=== PATIENT | female | born 1945 | race Caucasian/White ===

== ENCOUNTER 2019-05-24 06:00 | Outpatient (RCR) | payer MEDICARE, OTHER, SELFPAY | END 2019-06-11 23:59 | disposition home or self-care (01) | LOC: GPT 06:00 | PROVIDERS: Family Provider Nurse Practitioner; PCP Nurse Practitioner; Referring Provider Orthopaedic Surgery; Visit Provider Orthopaedic Surgery | DX: G90.521 Complex regional pain syndrome I of right lower limb (principal); M25.571 Pain in right ankle and joints of right foot; M25.671 Stiffness of right ankle, not elsewhere classified; G89.4 Chronic pain syndrome; R26.2 Difficulty in walking, not elsewhere classified | CPT/HCPCS: 97032; 97110; 97162; 97530 ==

== ENCOUNTER 2019-06-12 06:00 | Outpatient (RCR) | payer MEDICARE, OTHER, SELFPAY | END 2019-07-12 23:59 | disposition home or self-care (01) | LOC: GPT 06:00 | PROVIDERS: Family Provider Nurse Practitioner; PCP Nurse Practitioner; Referring Provider Orthopaedic Surgery; Visit Provider Orthopaedic Surgery | DX: S93.401D Sprain of unspecified ligament of right ankle, subsequent encounter (principal); X58.XXXD Exposure to other specified factors, subsequent encounter | CPT/HCPCS: 97032; 97110; 97112; 97116; 97164; 97530; 97760 ==

== ENCOUNTER 2019-07-13 06:00 | Outpatient (RCR) | payer MEDICARE, OTHER, SELFPAY | END 2019-08-11 23:59 | disposition home or self-care (01) | LOC: GPT 06:00 | PROVIDERS: Family Provider Nurse Practitioner; PCP Nurse Practitioner; Referring Provider Orthopaedic Surgery; Visit Provider Orthopaedic Surgery | DX: S93.401D Sprain of unspecified ligament of right ankle, subsequent encounter (principal); X58.XXXD Exposure to other specified factors, subsequent encounter | CPT/HCPCS: 97032; 97110; 97112; 97116; 97164; 97530; 97760 ==

== ENCOUNTER → 2019-08-09 10:42 | Outpatient (BNVA) | payer MEDICARE, OTHER, SELFPAY | PROVIDERS: Family Provider Nurse Practitioner; PCP Internal Medicine; Referring Provider Orthopaedic Surgery; Visit Provider Anesthesiology Pain Medicine | DX: G56.40 Causalgia of unspecified upper limb (principal); M25.571 Pain in right ankle and joints of right foot; Z79.891 Long term (current) use of opiate analgesic | CPT/HCPCS: 99203; 99204 ==

== ENCOUNTER 2019-08-12 06:00 | Outpatient (RCR) | payer MEDICARE, OTHER, SELFPAY | END 2019-09-11 23:59 | disposition home or self-care (01) | LOC: GPT 06:00 | PROVIDERS: Family Provider Nurse Practitioner; PCP Internal Medicine; Referring Provider Orthopaedic Surgery; Visit Provider Orthopaedic Surgery | DX: M25.571 Pain in right ankle and joints of right foot (principal); M25.671 Stiffness of right ankle, not elsewhere classified; G89.4 Chronic pain syndrome; R26.2 Difficulty in walking, not elsewhere classified | CPT/HCPCS: 97110; 97112; 97116; 97530 ==

== ENCOUNTER 2019-09-12 06:00 | Outpatient (RCR) | payer MEDICARE, OTHER, SELFPAY | END 2019-10-11 23:59 | disposition home or self-care (01) | LOC: GPT 06:00 | PROVIDERS: PCP Internal Medicine; Visit Provider Orthopaedic Surgery | DX: S93.401D Sprain of unspecified ligament of right ankle, subsequent encounter (principal); X58.XXXD Exposure to other specified factors, subsequent encounter | CPT/HCPCS: 97110; 97112; 97116; 97164; 97530 ==

== ENCOUNTER 2019-10-12 06:00 | Outpatient (RCR) | payer MEDICARE, OTHER, SELFPAY | END 2019-11-11 23:59 | disposition home or self-care (01) | LOC: GPT 06:00 | PROVIDERS: PCP Internal Medicine; Visit Provider Orthopaedic Surgery | DX: S93.401D Sprain of unspecified ligament of right ankle, subsequent encounter (principal); X58.XXXD Exposure to other specified factors, subsequent encounter | CPT/HCPCS: 97110; 97112; 97116; 97530 ==

== ENCOUNTER 2019-12-09 17:40 | Inpatient (IN) | payer MEDICARE, OTHER, SELFPAY ==
[2019-12-09 17:44] VITALS: BP 136/65; PULSE 87; RESP 24; TEMP 36.8; O2SAT 88; BMI 22.1
[2019-12-09 18:04] VITALS: BP 127/68; PULSE 83; RESP 24; O2SAT 95
--- NOTE | 2019-12-09 18:07 | ED_ITS ---
Documented by User: Calin Jefferson DO 12/12/19 06:18 HPI - SOB/Dyspnea General: Chief Complaint: Shortness of Breath/Dyspnea Stated Complaint: GENERALIZED WEAKNESS Time Seen by Provider: 12/09/19 17:49 History of Present Illness: HPI Narrative: 74-year-old female comes in complaining of generalized weakness last 3 days just feels disoriented and weak no specific symptoms. She has had a nonproductive cough with shortness of breath with exertion. She has albuterol nebs at home which have been relieving her symptoms. On arrival here her room air sat was 88% with 2 L by nasal cannula she improved to the mid 90s. She denies a productive cough denies any vomiting or diarrhea no abdominal pain. MD elicited complaint: cough Pertinent past history: COPD and other (Flex regional pain syndrome) Onset (ago): day(s) Timing: constant Severity: moderate Exacerbating factors: exertion Relieving factors: oxygen and rest Associated symptoms: Reports cough, myalgias and nausea; Deny fever(s), syncope or vomiting Treatment prior to arrival: oxygen Review of Systems Const: Denies: fever(s), chills, body aches, change in appetite, fatigue or malaise ENMT: Denies: throat pain, ear or mastoid pain, nasal discharge or nasal congestion Card: Denies: syncope Resp: Denies: dyspnea, productive cough or non-productive cough GI: Reports: nausea; Denies: vomiting : Denies: flank pain, difficulty voiding, dysuria, urinary frequency or urinary urgency Skin/Breast: Denies: rash or pruritus PFSH ED PFSH: Medical History COPD (chronic obstructive pulmonary disease) Former smoker Tinnitus Ulcerative colitis Surgical History Hx of hernia repair Hx of tonsillectomy Hx of tonsillectomy Hx of tubal ligation Family History Other Diabetes Hypertension Social History Smoking and tobacco status: former smoker Alcohol intake: never Substance/Drug Use: never Lives independently: Yes Household members: spouse Housing: House Physical Exam Const: COMMON NORMALS: no acute distress GENERAL APPEARANCE: cooperative and comfortable ORIENTATION/CONSCIOUSNESS: Yes awake, Yes oriented to person, Yes oriented to place and Yes oriented to time HENMT: COMMON NORMALS: normocephalic, atraumatic and hearing grossly normal bilaterally HEAD & SCALP: normocephalic and atraumatic Eye: COMMON NORMALS: Equal, round and reactive pupils present, EOMs intact bilaterally, conjunctivae normal and no scleral icterus CONJUNCTIVA: Yes conjunctivae normal PUPIL: Yes Equal, round and reactive pupils present Neck/C-Spine: COMMON NORMALS: no JVD Resp: COMMON NORMALS: normal respiratory effort, No retractions, No use of accessory muscles and clear to auscultation bilaterally AUSCULTATION: clear to auscultation bilaterally Cardio: COMMON NORMALS: no JVD, regular rate, regular rhythm and No murmurs present (Cardio) RATE: regular rate RHYTHM: regular rhythm GI: COMMON NORMALS: Soft to palpation and No hepatosplenomegaly present AUSCULTATION: Yes normoactive bowel sounds PALPATION: Yes Soft to palpation, No Tenderness to palpation present (GI), No Guarding due to palpation present (GI) and Yes No hepatosplenomegaly present Extremity: COMMON NORMALS: normal to inspection, capillary refill normal, no clubbing, cyanosis or edema, no calf tenderness and no pedal edema Neuro: SENSORIUM/ORIENTATION: Yes oriented to person, Yes oriented to place and Yes oriented to time Skin: COMMON NORMALS: no rashes or lesions noted GENERAL SKIN EXAM: no rashes or lesions noted Course Vital Signs: Vital signs: Vital Signs Temperature 97.8 F 12/11/19 15:15 Pulse Rate 71 12/11/19 15:15 Respiratory Rate 18 12/11/19 15:15 Blood Pressure 150/60 12/11/19 15:15 Pulse Oximetry 94 12/11/19 15:15 MDM - SOB/Dyspnea MDM Narrative: Medical decision making narrative: Care turned over to Dr. Dyson at change of shift. Please see his notes for final diagnosis and disposition Lab Data: Labs: Lab Results 12/09/19 12/09/19 12/09/19 Range/Units 18:29 18:33 18:33 WBC 6.9 (4.0-10.0) 10^3/ uL RBC 4.49 (4.1-5.3) 10^6/u L Hgb 12.8 (11.5-15.3) g/dL Hct 40.1 (37.0-47.0) % MCV 89.3 (81-99) fL MCH 28.5 (28.0-34.0) pg MCHC 31.9 (30.0-36.0) g/dL RDW 13.4 (12.1-15.1) % Plt Count 285 (130-400) 10^3/c mm MPV 9.4 (7.4-10.4) fL Neut % (Auto) 76.2 % Lymph % (Auto) 10.8 % [place] % (Auto) 8.2 % Eos % (Auto) 4.4 % Baso % (Auto) 0.1 % Neut # (Auto) 5.24 (1.8-7.7) 10^3/u L Lymph # (Auto) 0.7 L (0.8-4.8) 10^3/u L [place] # (Auto) 0.6 (0.2-0.9) 10^3/u L Eos # (Auto) 0.3 (0.0-0.8) 10^3/u L Baso # (Auto) 0.0 (0.0-0.1) 10^3/u L Nucleated RBC % (a uto) 0 % Nucleated RBCs # 0.0 /100WBC Specimen Type Arterial Sample Site Radial, left ABG pH 7.45 (7.35-7.45) ABG pCO2 36.9 (35-45) mmHg ABG pO2 115.0 H (80.0-100.0) mmH g ABG HCO3 25.6 (22-26) mmol/L ABG O2 Saturation 99.2 ABG Base Excess 1.7 (-2.0-2.0) mmol/ L Keagan Test Pos A-a O2 Gradient 4.6 L (5-10) mmHg Hematocrit 39.7 (37-47) % Hgb O2 Saturation 97.6 (95-100) % Carboxyhemoglobin 1.0 (0.4-20.1) %THgb Methemoglobin 0.6 (0.4-1.5) % Total Hemoglobin 12.9 (12-16) g/dL Sodium 135.0 133 L (131-143) mmol/L Potassium 4.2 4.3 (3.5-5.0) mmol/L Glucose 124.0 H 128 H (70-115) mg/dL Ionized Calcium 1.2 (1.1-1.4) mmol/L O2 Delivery Device Nc O2 Liters/Min 2.0 % FiO2 28.0 % Building Construction Professor ID Ed Chloride 99 (98-107) mmol/L Carbon Dioxide 28 (22-29) mmol/L Anion Gap 10.3 (5-19) BUN 18 (8-23) mg/dL Creatinine 0.7 (0.5-0.9) mg/dL GFR Calculation Not Reportable Calculated Osmolal ity 274 L (285-295) mOsm/k g Calcium 8.5 (8.5-10.5) mg/dL Total Bilirubin 0.3 (0.15-1.2) mg/dL AST 28 (0-32) U/L ALT 41 H (0-33) U/L Alkaline Phosphata se 126 H (35-105) IU/L Creatine Kinase 20 L (26-192) U/L Troponin T Baselin e (0-10) ng/L Troponin T 120 Min [place] (0-10) ng/L Delta Troponin T (0-10) ABS# Troponin T Hi Sens 6Hr (0-10) ng/L Troponin T Hi Sens 6Hr Delta (0-12) ng/L C-Reactive Protein (0.0-4.9) mg/L NT-Pro-B Natriuret Pep (0-125) pg/mL Total Protein 7.5 (6.6-8.7) g/dL Albumin 3.2 L (3.5-5.2) g/dL Globulin 4.3 (1.3-4.6) g/dL Vitamin B12 (232-1245) pg/mL Procalcitonin (0-0.5) ng/mL TSH (0.27-4.20) uIU/ mL Urine Color (Yellow) Urine Appearance (CLEAR) Urine pH (5-7) Ur Specific Gravit y (1.005-1.030) Urine Protein (Negative) Urine Glucose (UA) (Normal) Urine Ketones (Negative) Urine Blood (Negative) Urine Nitrate (Negative) Urine Bilirubin (NEGATIVE) Urine Urobilinogen (Negative) mg/dL Ur Leukocyte Avril ase (Negative) Urine RBC (0-2) /hpf Urine WBC (0-5) /hpf Ur Squamous Epith Cells (0-5) Amorphous Sediment Urine Bacteria (NONE) Urine Mucus SARS-CoV-2 RNA (RT -PCR) (NOT DETECTED) SARS-CoV-2 Ag (Rap id) (Negative) 12/09/19 12/09/19 12/09/19 Range/Units 18:33 18:57 20:08 WBC (4.0-10.0) 10^3/ uL RBC (4.1-5.3) 10^6/u L Hgb (11.5-15.3) g/dL Hct (37.0-47.0) % MCV (81-99) fL MCH (28.0-34.0) pg MCHC (30.0-36.0) g/dL RDW (12.1-15.1) % Plt Count (130-400) 10^3/c mm MPV (7.4-10.4) fL Neut % (Auto) % Lymph % (Auto) % [place] % (Auto) % Eos % (Auto) % Baso % (Auto) % Neut # (Auto) (1.8-7.7) 10^3/u L Lymph # (Auto) (0.8-4.8) 10^3/u L [place] # (Auto) (0.2-0.9) 10^3/u L Eos # (Auto) (0.0-0.8) 10^3/u L Baso # (Auto) (0.0-0.1) 10^3/u L Nucleated RBC % (a uto) % Nucleated RBCs # /100WBC Specimen Type Sample Site ABG pH (7.35-7.45) ABG pCO2 (35-45) mmHg ABG pO2 (80.0-100.0) mmH g ABG HCO3 (22-26) mmol/L ABG O2 Saturation ABG Base Excess (-2.0-2.0) mmol/ L Keagan Test A-a O2 Gradient (5-10) mmHg Hematocrit (37-47) % Hgb O2 Saturation (95-100) % Carboxyhemoglobin (0.4-20.1) %THgb Methemoglobin (0.4-1.5) % Total Hemoglobin (12-16) g/dL Sodium (131-143) mmol/L Potassium (3.5-5.0) mmol/L Glucose (70-115) mg/dL Ionized Calcium (1.1-1.4) mmol/L O2 Delivery Device O2 Liters/Min % FiO2 % Building [employer] Professor ID Chloride (98-107) mmol/L Carbon Dioxide (22-29) mmol/L Anion Gap (5-19) BUN (8-23) mg/dL Creatinine (0.5-0.9) mg/dL GFR Calculation Calculated Osmolal ity (285-295) mOsm/k g Calcium (8.5-10.5) mg/dL Total Bilirubin (0.15-1.2) mg/dL AST (0-32) U/L ALT (0-33) U/L Alkaline Phosphata se (35-105) IU/L Creatine Kinase (26-192) U/L Troponin T Baselin e (0-10) ng/L Troponin T 120 Min [place] (0-10) ng/L Delta Troponin T (0-10) ABS# Troponin T Hi Sens 6Hr (0-10) ng/L Troponin T Hi Sens 6Hr Delta (0-12) ng/L C-Reactive Protein (0.0-4.9) mg/L NT-Pro-B Natriuret Pep (0-125) pg/mL Total Protein (6.6-8.7) g/dL Albumin (3.5-5.2) g/dL Globulin (1.3-4.6) g/dL Vitamin B12 481 (232-1245) pg/mL Procalcitonin (0-0.5) ng/mL TSH 1.87 (0.27-4.20) uIU/ mL Urine Color Yellow (Yellow) Urine Appearance Sl hazy (CLEAR) Urine pH 6 (5-7) Ur Specific Gravit y 1.015 (1.005-1.030) Urine Protein Neg (Negative) Urine Glucose (UA) Norm (Normal) Urine Ketones Negative (Negative) Urine Blood Neg (Negative) Urine Nitrate Negative (Negative) Urine Bilirubin Neg (NEGATIVE) Urine Urobilinogen Norm (Negative) mg/dL Ur Leukocyte Avril ase 2+ H (Negative) Urine RBC 0-4 H (0-2) /hpf Urine WBC 15-25 H (0-5) /hpf Ur Squamous Epith Cells 15-25 H (0-5) Amorphous Sediment Not Reportable Urine Bacteria 1+ H (NONE) Urine Mucus 1+ SARS-CoV-2 RNA (RT -PCR) Not detected (NOT DETECTED) SARS-CoV-2 Ag (Rap id) (Negative) 12/09/19 12/10/19 12/10/19 Range/Units 21:40 04:08 04:08 WBC 4.9 (4.0-10.0) 10^3/ uL RBC 4.15 (4.1-5.3) 10^6/u L Hgb 11.7 (11.5-15.3) g/dL Hct 36.7 L (37.0-47.0) % MCV 88.4 (81-99) fL MCH 28.2 (28.0-34.0) pg MCHC 31.9 (30.0-36.0) g/dL RDW 13.4 (12.1-15.1) % Plt Count 265 (130-400) 10^3/c mm MPV 10.3 (7.4-10.4) fL Neut % (Auto) 64.0 % Lymph % (Auto) 18.1 % [place] % (Auto) 10.9 % Eos % (Auto) 6.4 % Baso % (Auto) 0.2 % Neut # (Auto) 3.12 (1.8-7.7) 10^3/u L Lymph # (Auto) 0.9 (0.8-4.8) 10^3/u L [place] # (Auto) 0.5 (0.2-0.9) 10^3/u L Eos # (Auto) 0.3 (0.0-0.8) 10^3/u L Baso # (Auto) 0.0 (0.0-0.1) 10^3/u L Nucleated RBC % (a uto) 0 % Nucleated RBCs # 0.0 /100WBC Specimen Type Sample Site ABG pH (7.35-7.45) ABG pCO2 (35-45) mmHg ABG pO2 (80.0-100.0) mmH g ABG HCO3 (22-26) mmol/L ABG O2 Saturation ABG Base Excess (-2.0-2.0) mmol/ L [place]agan Test A-a O2 Gradient (5-10) mmHg Hematocrit (37-47) % Hgb O2 Saturation (95-100) % Carboxyhemoglobin (0.4-20.1) %THgb Methemoglobin (0.4-1.5) % Total Hemoglobin (12-16) g/dL Sodium 136 (131-143) mmol/L Potassium 4.1 (3.5-5.0) mmol/L Glucose 100 (70-115) mg/dL Ionized Calcium (1.1-1.4) mmol/L O2 Delivery Device O2 Liters/Min % FiO2 % Building [employer] Professor ID Chloride 105 (98-107) mmol/L Carbon Dioxide 26 (22-29) mmol/L Anion Gap 9.1 (5-19) BUN 16 (8-23) mg/dL Creatinine 0.7 (0.5-0.9) mg/dL GFR Calculation Not Reportable Calculated Osmolal ity 278 L (285-295) mOsm/k g Calcium 8.0 L (8.5-10.5) mg/dL Total Bilirubin (0.15-1.2) mg/dL AST (0-32) U/L ALT (0-33) U/L Alkaline Phosphata se (35-105) IU/L Creatine Kinase (26-192) U/L Troponin T Baselin e (0-10) ng/L Troponin T 120 Min [place] (0-10) ng/L Delta Troponin T (0-10) ABS# Troponin T Hi Sens 6Hr (0-10) ng/L Troponin T Hi Sens 6Hr Delta (0-12) ng/L C-Reactive Protein (0.0-4.9) mg/L NT-Pro-B Natriuret Pep (0-125) pg/mL Total Protein (6.6-8.7) g/dL Albumin (3.5-5.2) g/dL Globulin (1.3-4.6) g/dL Vitamin B12 (232-1245) pg/mL Procalcitonin (0-0.5) ng/mL TSH (0.27-4.20) uIU/ mL Urine Color (Yellow) Urine Appearance (CLEAR) Urine pH (5-7) Ur Specific Gravit y (1.005-1.030) Urine Protein (Negative) Urine Glucose (UA) (Normal) Urine Ketones (Negative) Urine Blood (Negative) Urine Nitrate (Negative) Urine Bilirubin (NEGATIVE) Urine Urobilinogen (Negative) mg/dL Ur Leukocyte Avril ase (Negative) Urine RBC (0-2) /hpf Urine WBC (0-5) /hpf Ur Squamous Epith Cells (0-5) Amorphous Sediment Urine Bacteria (NONE) Urine Mucus SARS-CoV-2 RNA (RT -PCR) (NOT DETECTED) SARS-CoV-2 Ag (Rap id) Negative (Negative) 12/10/19 12/10/19 12/10/19 Range/Units 09:30 09:30 11:51 WBC (4.0-10.0) 10^3/ uL RBC (4.1-5.3) 10^6/u L Hgb (11.5-15.3) g/dL Hct (37.0-47.0) % MCV (81-99) fL MCH (28.0-34.0) pg MCHC (30.0-36.0) g/dL RDW (12.1-15.1) % Plt Count (130-400) 10^3/c mm MPV (7.4-10.4) fL Neut % (Auto) % Lymph % (Auto) % [place] % (Auto) % Eos % (Auto) % Baso % (Auto) % Neut # (Auto) (1.8-7.7) 10^3/u L Lymph # (Auto) (0.8-4.8) 10^3/u L [place] # (Auto) (0.2-0.9) 10^3/u L Eos # (Auto) (0.0-0.8) 10^3/u L Baso # (Auto) (0.0-0.1) 10^3/u L Nucleated RBC % (a uto) % Nucleated RBCs # /100WBC Specimen Type Sample Site ABG pH (7.35-7.45) ABG pCO2 (35-45) mmHg ABG pO2 (80.0-100.0) mmH g ABG HCO3 (22-26) mmol/L ABG O2 Saturation ABG Base Excess (-2.0-2.0) mmol/ L [place]agan Test A-a O2 Gradient (5-10) mmHg Hematocrit (37-47) % Hgb O2 Saturation (95-100) % Carboxyhemoglobin (0.4-20.1) %THgb Methemoglobin (0.4-1.5) % Total Hemoglobin (12-16) g/dL Sodium (131-143) mmol/L Potassium (3.5-5.0) mmol/L Glucose (70-115) mg/dL Ionized Calcium (1.1-1.4) mmol/L O2 Delivery Device O2 Liters/Min % FiO2 % Building [employer] Professor ID Chloride (98-107) mmol/L Carbon Dioxide (22-29) mmol/L Anion Gap (5-19) BUN (8-23) mg/dL Creatinine (0.5-0.9) mg/dL GFR Calculation Calculated Osmolal ity (285-295) mOsm/k g Calcium (8.5-10.5) mg/dL Total Bilirubin (0.15-1.2) mg/dL AST (0-32) U/L ALT (0-33) U/L Alkaline Phosphata se (35-105) IU/L Creatine Kinase (26-192) U/L Troponin T Baselin e 17 H (0-10) ng/L Troponin T 120 Min [place] 16.40 H (0-10) ng/L Delta Troponin T -0.60 L (0-10) ABS# Troponin T Hi Sens 6Hr (0-10) ng/L Troponin T Hi Sens 6Hr Delta (0-12) ng/L C-Reactive Protein 6.3 H (0.0-4.9) mg/L NT-Pro-B Natriuret Pep 445 H (0-125) pg/mL Total Protein (6.6-8.7) g/dL Albumin (3.5-5.2) g/dL Globulin (1.3-4.6) g/dL Vitamin B12 (232-1245) pg/mL Procalcitonin 0.11 (0-0.5) ng/mL TSH (0.27-4.20) uIU/ mL Urine Color (Yellow) Urine Appearance (CLEAR) Urine pH (5-7) Ur Specific Gravit y (1.005-1.030) Urine Protein (Negative) Urine Glucose (UA) (Normal) Urine Ketones (Negative) Urine Blood (Negative) Urine Nitrate (Negative) Urine Bilirubin (NEGATIVE) Urine Urobilinogen (Negative) mg/dL Ur Leukocyte Avril ase (Negative) Urine RBC (0-2) /hpf Urine WBC (0-5) /hpf Ur Squamous Epith Cells (0-5) Amorphous Sediment Urine Bacteria (NONE) Urine Mucus SARS-CoV-2 RNA (RT -PCR) (NOT DETECTED) SARS-CoV-2 Ag (Rap id) (Negative) 12/10/19 Range/Units 14:45 WBC (4.0-10.0) 10^3/ uL RBC (4.1-5.3) 10^6/u L Hgb (11.5-15.3) g/dL Hct (37.0-47.0) % MCV (81-99) fL MCH (28.0-34.0) pg MCHC (30.0-36.0) g/dL RDW (12.1-15.1) % Plt Count (130-400) 10^3/c mm MPV (7.4-10.4) fL Neut % (Auto) % Lymph % (Auto) % [place] % (Auto) % Eos % (Auto) % Baso % (Auto) % Neut # (Auto) (1.8-7.7) 10^3/u L Lymph # (Auto) (0.8-4.8) 10^3/u L [place] # (Auto) (0.2-0.9) 10^3/u L Eos # (Auto) (0.0-0.8) 10^3/u L Baso # (Auto) (0.0-0.1) 10^3/u L Nucleated RBC % (a uto) % Nucleated RBCs # /100WBC Specimen Type Sample Site ABG pH (7.35-7.45) ABG pCO2 (35-45) mmHg ABG pO2 (80.0-100.0) mmH g ABG HCO3 (22-26) mmol/L ABG O2 Saturation ABG Base Excess (-2.0-2.0) mmol/ L Keagan Test A-a O2 Gradient (5-10) mmHg Hematocrit (37-47) % Hgb O2 Saturation (95-100) % Carboxyhemoglobin (0.4-20.1) %THgb Methemoglobin (0.4-1.5) % Total Hemoglobin (12-16) g/dL Sodium (131-143) mmol/L Potassium (3.5-5.0) mmol/L Glucose (70-115) mg/dL Ionized Calcium (1.1-1.4) mmol/L O2 Delivery Device O2 Liters/Min % FiO2 % Building [employer] Professor ID Chloride (98-107) mmol/L Carbon Dioxide (22-29) mmol/L Anion Gap (5-19) BUN (8-23) mg/dL Creatinine (0.5-0.9) mg/dL GFR Calculation Calculated Osmolal ity (285-295) mOsm/k g Calcium (8.5-10.5) mg/dL Total Bilirubin (0.15-1.2) mg/dL AST (0-32) U/L ALT (0-33) U/L Alkaline Phosphata se (35-105) IU/L Creatine Kinase (26-192) U/L Troponin T Baselin e (0-10) ng/L Troponin T 120 Min [place] (0-10) ng/L Delta Troponin T (0-10) ABS# Troponin T Hi Sens 6Hr 15.32 H (0-10) ng/L Troponin T Hi Sens 6Hr Delta -1.68 L (0-12) ng/L C-Reactive Protein (0.0-4.9) mg/L NT-Pro-B Natriuret Pep (0-125) pg/mL Total Protein (6.6-8.7) g/dL Albumin (3.5-5.2) g/dL Globulin (1.3-4.6) g/dL Vitamin B12 (232-1245) pg/mL Procalcitonin (0-0.5) ng/mL TSH (0.27-4.20) uIU/ mL Urine Color (Yellow) Urine Appearance (CLEAR) Urine pH (5-7) Ur Specific Gravit y (1.005-1.030) Urine Protein (Negative) Urine Glucose (UA) (Normal) Urine Ketones (Negative) Urine Blood (Negative) Urine Nitrate (Negative) Urine Bilirubin (NEGATIVE) Urine Urobilinogen (Negative) mg/dL Ur Leukocyte Avril ase (Negative) Urine RBC (0-2) /hpf Urine WBC (0-5) /hpf Ur Squamous Epith Cells (0-5) Amorphous Sediment Urine Bacteria (NONE) Urine Mucus SARS-CoV-2 RNA (RT -PCR) (NOT DETECTED) SARS-CoV-2 Ag (Rap id) (Negative) Discharge Plan Discharge Patient Disposition: Admitted As Inpatient Admit Provider: Pearl Allen Clinical Impression: Lingular pneumonia Condition: Stable Referrals: Xenia Eugene MD [Physician] - 1 week Ry Muñoz MD [Hospitalist] - 1-3 days (You will get a call from Dr. Muñoz office in the next 24 hours if not please call his office) Becca Morrison MD [Primary Care Provider] - (Please call patient at home with a hospital follow up appointment. Faxed information to clinic) Discharge Diet: Regular Discharge Activity: Resume usual activity Patient Instructions: Aspirin (By mouth), Atorvastatin (By mouth), Levofloxacin (By mouth), Urinary Tract Infection in Women (DC), Lung Cancer (DC), Ischemic Stroke (DC), Left Hemispheric Stroke (DC), Self Care Measures After a Stroke (DC), Positron Emission Tomography of the Chest (DC), Needle Biopsy of the Lung (DC) Additional Instructions: -Please drink plenty of electrolyte balance fluids such as Gatorade, Ensure drinks or boost daily -For stroke take aspirin and statin as prescribed -If you have bloody or black stools please come back to the emergency room -Please follow-up with neurology in 1 to 2 weeks, if you have recurrent strokelike symptoms call 911 -Please follow-up with oncology in 1 to 2 days, for lung mass, and further work- up Discharge Date/Time: 12/09/19 23:46 Coding Level of Care Code ED Rn [facility] for [facility]g Fwd Exam Comprehensive Documented by User: Shailesh Dyson DO 12/10/19 02:55 HPI - SOB/Dyspnea General: Chief Complaint: Shortness of Breath/Dyspnea Stated Complaint: GENERALIZED WEAKNESS Time Seen by Provider: 12/09/19 17:49 PFSH ED PFSH: Medical History COPD (chronic obstructive pulmonary disease) Former smoker Tinnitus Ulcerative colitis Surgical History Hx of hernia repair Hx of tonsillectomy Hx of tonsillectomy Hx of tubal ligation Family History Other Diabetes Hypertension Social History Smoking and tobacco status: former smoker Alcohol intake: never Substance/Drug Use: never Lives independently: Yes Household members: spouse Housing: House Course Vital Signs: Vital signs: Vital Signs Temperature 97.8 F 12/11/19 15:15 Pulse Rate 71 12/11/19 15:15 Respiratory Rate 18 12/11/19 15:15 Blood Pressure 150/60 12/11/19 15:15 Pulse Oximetry 94 12/11/19 15:15 MDM - SOB/Dyspnea MDM Narrative: Medical decision making narrative: 74-year-old lady checked out to me by Dr. Ram. This lady has been short of breath and generally weak at home. She has had a subjective temperature. Her white blood cell count is 6.9. She has essentially normal electrolytes. On chest x-ray she has a very focal pneumonia. She has been hypoxic here and requiring 2 L of oxygen. She does not usually require oxygen. She will therefore be admitted for community-acquired pneumonia. She has been tested for novel coronavirus infection as well. Lab Data: Labs: Lab Results 12/09/19 12/09/19 12/09/19 Range/Units 18:29 18:33 18:33 WBC 6.9 (4.0-10.0) 10^3/ uL RBC 4.49 (4.1-5.3) 10^6/u L Hgb 12.8 (11.5-15.3) g/dL Hct 40.1 (37.0-47.0) % MCV 89.3 (81-99) fL MCH 28.5 (28.0-34.0) pg MCHC 31.9 (30.0-36.0) g/dL RDW 13.4 (12.1-15.1) % Plt Count 285 (130-400) 10^3/c mm MPV 9.4 (7.4-10.4) fL Neut % (Auto) 76.2 % Lymph % (Auto) 10.8 % [place] % (Auto) 8.2 % Eos % (Auto) 4.4 % Baso % (Auto) 0.1 % Neut # (Auto) 5.24 (1.8-7.7) 10^3/u L Lymph # (Auto) 0.7 L (0.8-4.8) 10^3/u L [place] # (Auto) 0.6 (0.2-0.9) 10^3/u L Eos # (Auto) 0.3 (0.0-0.8) 10^3/u L Baso # (Auto) 0.0 (0.0-0.1) 10^3/u L Nucleated RBC % (a uto) 0 % Nucleated RBCs # 0.0 /100WBC Specimen Type Arterial Sample Site Radial, left ABG pH 7.45 (7.35-7.45) ABG pCO2 36.9 (35-45) mmHg ABG pO2 115.0 H (80.0-100.0) mmH g ABG HCO3 25.6 (22-26) mmol/L ABG O2 Saturation 99.2 ABG Base Excess 1.7 (-2.0-2.0) mmol/ L Keagan Test Pos A-a O2 Gradient 4.6 L (5-10) mmHg Hematocrit 39.7 (37-47) % Hgb O2 Saturation 97.6 (95-100) % Carboxyhemoglobin 1.0 (0.4-20.1) %THgb Methemoglobin 0.6 (0.4-1.5) % Total Hemoglobin 12.9 (12-16) g/dL Sodium 135.0 133 L (131-143) mmol/L Potassium 4.2 4.3 (3.5-5.0) mmol/L Glucose 124.0 H 128 H (70-115) mg/dL Ionized Calcium 1.2 (1.1-1.4) mmol/L O2 Delivery Device Nc O2 Liters/Min 2.0 % FiO2 28.0 % [employer] Professor ID Ed Chloride 99 (98-107) mmol/L Carbon Dioxide 28 (22-29) mmol/L Anion Gap 10.3 (5-19) BUN 18 (8-23) mg/dL Creatinine 0.7 (0.5-0.9) mg/dL GFR Calculation Not Reportable Calculated Osmolal ity 274 L (285-295) mOsm/k g Calcium 8.5 (8.5-10.5) mg/dL Total Bilirubin 0.3 (0.15-1.2) mg/dL AST 28 (0-32) U/L ALT 41 H (0-33) U/L Alkaline Phosphata se 126 H (35-105) IU/L Creatine Kinase 20 L (26-192) U/L Troponin T Baselin e (0-10) ng/L Troponin T 120 Min [place] (0-10) ng/L Delta Troponin T (0-10) ABS# Troponin T Hi Sens 6Hr (0-10) ng/L Troponin T Hi Sens 6Hr Delta (0-12) ng/L C-Reactive Protein (0.0-4.9) mg/L NT-Pro-B Natriuret Pep (0-125) pg/mL Total Protein 7.5 (6.6-8.7) g/dL Albumin 3.2 L (3.5-5.2) g/dL Globulin 4.3 (1.3-4.6) g/dL Vitamin B12 (232-1245) pg/mL Procalcitonin (0-0.5) ng/mL TSH (0.27-4.20) uIU/ mL Urine Color (Yellow) Urine Appearance (CLEAR) Urine pH (5-7) Ur Specific Gravit y (1.005-1.030) Urine Protein (Negative) Urine Glucose (UA) (Normal) Urine Ketones (Negative) Urine Blood (Negative) Urine Nitrate (Negative) Urine Bilirubin (NEGATIVE) Urine Urobilinogen (Negative) mg/dL Ur Leukocyte Avril ase (Negative) Urine RBC (0-2) /hpf Urine WBC (0-5) /hpf Ur Squamous Epith Cells (0-5) Amorphous Sediment Urine Bacteria (NONE) Urine Mucus SARS-CoV-2 RNA (RT -PCR) (NOT DETECTED) SARS-CoV-2 Ag (Rap id) (Negative) 12/09/19 12/09/19 12/09/19 Range/Units 18:33 18:57 20:08 WBC (4.0-10.0) 10^3/ uL RBC (4.1-5.3) 10^6/u L Hgb (11.5-15.3) g/dL Hct (37.0-47.0) % MCV (81-99) fL MCH (28.0-34.0) pg MCHC (30.0-36.0) g/dL RDW (12.1-15.1) % Plt Count (130-400) 10^3/c mm MPV (7.4-10.4) fL Neut % (Auto) % Lymph % (Auto) % [place] % (Auto) % Eos % (Auto) % Baso % (Auto) % Neut # (Auto) (1.8-7.7) 10^3/u L Lymph # (Auto) (0.8-4.8) 10^3/u L [place] # (Auto) (0.2-0.9) 10^3/u L Eos # (Auto) (0.0-0.8) 10^3/u L Baso # (Auto) (0.0-0.1) 10^3/u L Nucleated RBC % (a uto) % Nucleated RBCs # /100WBC Specimen Type Sample Site ABG pH (7.35-7.45) ABG pCO2 (35-45) mmHg ABG pO2 (80.0-100.0) mmH g ABG HCO3 (22-26) mmol/L ABG O2 Saturation ABG Base Excess (-2.0-2.0) mmol/ L [place] Test A-a O2 Gradient (5-10) mmHg Hematocrit (37-47) % Hgb O2 Saturation (95-100) % Carboxyhemoglobin (0.4-20.1) %THgb Methemoglobin (0.4-1.5) % Total Hemoglobin (12-16) g/dL Sodium (131-143) mmol/L Potassium (3.5-5.0) mmol/L Glucose (70-115) mg/dL Ionized Calcium (1.1-1.4) mmol/L O2 Delivery Device O2 Liters/Min % FiO2 % [employer] Professor ID Chloride (98-107) mmol/L Carbon Dioxide (22-29) mmol/L Anion Gap (5-19) BUN (8-23) mg/dL Creatinine (0.5-0.9) mg/dL GFR Calculation Calculated Osmolal ity (285-295) mOsm/k g Calcium (8.5-10.5) mg/dL Total Bilirubin (0.15-1.2) mg/dL AST (0-32) U/L ALT (0-33) U/L Alkaline Phosphata se (35-105) IU/L Creatine Kinase (26-192) U/L Troponin T Baselin e (0-10) ng/L Troponin T 120 Min [place] (0-10) ng/L Delta Troponin T (0-10) ABS# Troponin T Hi Sens 6Hr (0-10) ng/L Troponin T Hi Sens 6Hr Delta (0-12) ng/L C-Reactive Protein (0.0-4.9) mg/L NT-Pro-B Natriuret Pep (0-125) pg/mL Total Protein (6.6-8.7) g/dL Albumin (3.5-5.2) g/dL Globulin (1.3-4.6) g/dL Vitamin B12 481 (232-1245) pg/mL Procalcitonin (0-0.5) ng/mL TSH 1.87 (0.27-4.20) uIU/ mL Urine Color Yellow (Yellow) Urine Appearance Sl hazy (CLEAR) Urine pH 6 (5-7) Ur Specific Gravit y 1.015 (1.005-1.030) Urine Protein Neg (Negative) Urine Glucose (UA) Norm (Normal) Urine Ketones Negative (Negative) Urine Blood Neg (Negative) Urine Nitrate Negative (Negative) Urine Bilirubin Neg (NEGATIVE) Urine Urobilinogen Norm (Negative) mg/dL Ur Leukocyte Avril ase 2+ H (Negative) Urine RBC 0-4 H (0-2) /hpf Urine WBC 15-25 H (0-5) /hpf Ur Squamous Epith Cells 15-25 H (0-5) Amorphous Sediment Not Reportable Urine Bacteria 1+ H (NONE) Urine Mucus 1+ SARS-CoV-2 RNA (RT -PCR) Not detected (NOT DETECTED) SARS-CoV-2 Ag (Rap id) (Negative) 12/09/19 12/10/19 12/10/19 Range/Units 21:40 04:08 04:08 WBC 4.9 (4.0-10.0) 10^3/ uL RBC 4.15 (4.1-5.3) 10^6/u L Hgb 11.7 (11.5-15.3) g/dL Hct 36.7 L (37.0-47.0) % MCV 88.4 (81-99) fL MCH 28.2 (28.0-34.0) pg MCHC 31.9 (30.0-36.0) g/dL RDW 13.4 (12.1-15.1) % Plt Count 265 (130-400) 10^3/c mm MPV 10.3 (7.4-10.4) fL Neut % (Auto) 64.0 % Lymph % (Auto) 18.1 % [place] % (Auto) 10.9 % Eos % (Auto) 6.4 % Baso % (Auto) 0.2 % Neut # (Auto) 3.12 (1.8-7.7) 10^3/u L Lymph # (Auto) 0.9 (0.8-4.8) 10^3/u L [place] # (Auto) 0.5 (0.2-0.9) 10^3/u L Eos # (Auto) 0.3 (0.0-0.8) 10^3/u L Baso # (Auto) 0.0 (0.0-0.1) 10^3/u L Nucleated RBC % (a uto) 0 % Nucleated RBCs # 0.0 /100WBC Specimen Type Sample Site ABG pH (7.35-7.45) ABG pCO2 (35-45) mmHg ABG pO2 (80.0-100.0) mmH g ABG HCO3 (22-26) mmol/L ABG O2 Saturation ABG Base Excess (-2.0-2.0) mmol/ L Keagan Test A-a O2 Gradient (5-10) mmHg Hematocrit (37-47) % Hgb O2 Saturation (95-100) % Carboxyhemoglobin (0.4-20.1) %THgb Methemoglobin (0.4-1.5) % Total Hemoglobin (12-16) g/dL Sodium 136 (131-143) mmol/L Potassium 4.1 (3.5-5.0) mmol/L Glucose 100 (70-115) mg/dL Ionized Calcium (1.1-1.4) mmol/L O2 Delivery Device O2 Liters/Min % FiO2 % Building Construction Professor ID Chloride 105 (98-107) mmol/L Carbon Dioxide 26 (22-29) mmol/L Anion Gap 9.1 (5-19) BUN 16 (8-23) mg/dL Creatinine 0.7 (0.5-0.9) mg/dL GFR Calculation Not Reportable Calculated Osmolal ity 278 L (285-295) mOsm/k g Calcium 8.0 L (8.5-10.5) mg/dL Total Bilirubin (0.15-1.2) mg/dL AST (0-32) U/L ALT (0-33) U/L Alkaline Phosphata se (35-105) IU/L Creatine Kinase (26-192) U/L Troponin T Baselin e (0-10) ng/L Troponin T 120 Min [place] (0-10) ng/L Delta Troponin T (0-10) ABS# Troponin T Hi Sens 6Hr (0-10) ng/L Troponin T Hi Sens 6Hr Delta (0-12) ng/L C-Reactive Protein (0.0-4.9) mg/L NT-Pro-B Natriuret Pep (0-125) pg/mL Total Protein (6.6-8.7) g/dL Albumin (3.5-5.2) g/dL Globulin (1.3-4.6) g/dL Vitamin B12 (232-1245) pg/mL Procalcitonin (0-0.5) ng/mL TSH (0.27-4.20) uIU/ mL Urine Color (Yellow) Urine Appearance (CLEAR) Urine pH (5-7) Ur Specific Gravit y (1.005-1.030) Urine Protein (Negative) Urine Glucose (UA) (Normal) Urine Ketones (Negative) Urine Blood (Negative) Urine Nitrate (Negative) Urine Bilirubin (NEGATIVE) Urine Urobilinogen (Negative) mg/dL Ur Leukocyte Arvil ase (Negative) Urine RBC (0-2) /hpf Urine WBC (0-5) /hpf Ur Squamous Epith Cells (0-5) Amorphous Sediment Urine Bacteria (NONE) Urine Mucus SARS-CoV-2 RNA (RT -PCR) (NOT DETECTED) SARS-CoV-2 Ag (Rap id) Negative (Negative) 12/10/19 12/10/19 12/10/19 Range/Units 09:30 09:30 11:51 WBC (4.0-10.0) 10^3/ uL RBC (4.1-5.3) 10^6/u L Hgb (11.5-15.3) g/dL Hct (37.0-47.0) % MCV (81-99) fL MCH (28.0-34.0) pg MCHC (30.0-36.0) g/dL RDW (12.1-15.1) % Plt Count (130-400) 10^3/c mm MPV (7.4-10.4) fL Neut % (Auto) % Lymph % (Auto) % [place] % (Auto) % Eos % (Auto) % Baso % (Auto) % Neut # (Auto) (1.8-7.7) 10^3/u L Lymph # (Auto) (0.8-4.8) 10^3/u L [place] # (Auto) (0.2-0.9) 10^3/u L Eos # (Auto) (0.0-0.8) 10^3/u L Baso # (Auto) (0.0-0.1) 10^3/u L Nucleated RBC % (a uto) % Nucleated RBCs # /100WBC Specimen Type Sample Site ABG pH (7.35-7.45) ABG pCO2 (35-45) mmHg ABG pO2 (80.0-100.0) mmH g ABG HCO3 (22-26) mmol/L ABG O2 Saturation ABG Base Excess (-2.0-2.0) mmol/ L Keagan Test A-a O2 Gradient (5-10) mmHg Hematocrit (37-47) % Hgb O2 Saturation (95-100) % Carboxyhemoglobin (0.4-20.1) %THgb Methemoglobin (0.4-1.5) % Total Hemoglobin (12-16) g/dL Sodium (131-143) mmol/L Potassium (3.5-5.0) mmol/L Glucose (70-115) mg/dL Ionized Calcium (1.1-1.4) mmol/L O2 Delivery Device O2 Liters/Min % FiO2 % Building Construction Professor ID Chloride (98-107) mmol/L Carbon Dioxide (22-29) mmol/L Anion Gap (5-19) BUN (8-23) mg/dL Creatinine (0.5-0.9) mg/dL GFR Calculation Calculated Osmolal ity (285-295) mOsm/k g Calcium (8.5-10.5) mg/dL Total Bilirubin (0.15-1.2) mg/dL AST (0-32) U/L ALT (0-33) U/L Alkaline Phosphata se (35-105) IU/L Creatine Kinase (26-192) U/L Troponin T Baselin e 17 H (0-10) ng/L Troponin T 120 Min [place] 16.40 H (0-10) ng/L Delta Troponin T -0.60 L (0-10) ABS# Troponin T Hi Sens 6Hr (0-10) ng/L Troponin T Hi Sens 6Hr Delta (0-12) ng/L C-Reactive Protein 6.3 H (0.0-4.9) mg/L NT-Pro-B Natriuret Pep 445 H (0-125) pg/mL Total Protein (6.6-8.7) g/dL Albumin (3.5-5.2) g/dL Globulin (1.3-4.6) g/dL Vitamin B12 (232-1245) pg/mL Procalcitonin 0.11 (0-0.5) ng/mL TSH (0.27-4.20) uIU/ mL Urine Color (Yellow) Urine Appearance (CLEAR) Urine pH (5-7) Ur Specific Gravit y (1.005-1.030) Urine Protein (Negative) Urine Glucose (UA) (Normal) Urine Ketones (Negative) Urine Blood (Negative) Urine Nitrate (Negative) Urine Bilirubin (NEGATIVE) Urine Urobilinogen (Negative) mg/dL Ur Leukocyte Avril ase (Negative) Urine RBC (0-2) /hpf Urine WBC (0-5) /hpf Ur Squamous Epith Cells (0-5) Amorphous Sediment Urine Bacteria (NONE) Urine Mucus SARS-CoV-2 RNA (RT -PCR) (NOT DETECTED) SARS-CoV-2 Ag (Rap id) (Negative) 12/10/19 Range/Units 14:45 WBC (4.0-10.0) 10^3/ uL RBC (4.1-5.3) 10^6/u L Hgb (11.5-15.3) g/dL Hct (37.0-47.0) % MCV (81-99) fL MCH (28.0-34.0) pg MCHC (30.0-36.0) g/dL RDW (12.1-15.1) % Plt Count (130-400) 10^3/c mm MPV (7.4-10.4) fL Neut % (Auto) % Lymph % (Auto) % [place] % (Auto) % Eos % (Auto) % Baso % (Auto) % Neut # (Auto) (1.8-7.7) 10^3/u L Lymph # (Auto) (0.8-4.8) 10^3/u L [place] # (Auto) (0.2-0.9) 10^3/u L Eos # (Auto) (0.0-0.8) 10^3/u L Baso # (Auto) (0.0-0.1) 10^3/u L Nucleated RBC % (a uto) % Nucleated RBCs # /100WBC Specimen Type Sample Site ABG pH (7.35-7.45) ABG pCO2 (35-45) mmHg ABG pO2 (80.0-100.0) mmH g ABG HCO3 (22-26) mmol/L ABG O2 Saturation ABG Base Excess (-2.0-2.0) mmol/ L Keagan Test A-a O2 Gradient (5-10) mmHg Hematocrit (37-47) % Hgb O2 Saturation (95-100) % Carboxyhemoglobin (0.4-20.1) %THgb Methemoglobin (0.4-1.5) % Total Hemoglobin (12-16) g/dL Sodium (131-143) mmol/L Potassium (3.5-5.0) mmol/L Glucose (70-115) mg/dL Ionized Calcium (1.1-1.4) mmol/L O2 Delivery Device O2 Liters/Min % FiO2 % Building Construction Professor ID Chloride (98-107) mmol/L Carbon Dioxide (22-29) mmol/L Anion Gap (5-19) BUN (8-23) mg/dL Creatinine (0.5-0.9) mg/dL GFR Calculation Calculated Osmolal ity (285-295) mOsm/k g Calcium (8.5-10.5) mg/dL Total Bilirubin (0.15-1.2) mg/dL AST (0-32) U/L ALT (0-33) U/L Alkaline Phosphata se (35-105) IU/L Creatine Kinase (26-192) U/L Troponin T Baselin e (0-10) ng/L Troponin T 120 Min [place] (0-10) ng/L Delta Troponin T (0-10) ABS# Troponin T Hi Sens 6Hr 15.32 H (0-10) ng/L Troponin T Hi Sens 6Hr Delta -1.68 L (0-12) ng/L C-Reactive Protein (0.0-4.9) mg/L NT-Pro-B Natriuret Pep (0-125) pg/mL Total Protein (6.6-8.7) g/dL Albumin (3.5-5.2) g/dL Globulin (1.3-4.6) g/dL Vitamin B12 (232-1245) pg/mL Procalcitonin (0-0.5) ng/mL TSH (0.27-4.20) uIU/ mL Urine Color (Yellow) Urine Appearance (CLEAR) Urine pH (5-7) Ur Specific Gravit y (1.005-1.030) Urine Protein (Negative) Urine Glucose (UA) (Normal) Urine Ketones (Negative) Urine Blood (Negative) Urine Nitrate (Negative) Urine Bilirubin (NEGATIVE) Urine Urobilinogen (Negative) mg/dL Ur Leukocyte Avril ase (Negative) Urine RBC (0-2) /hpf Urine WBC (0-5) /hpf Ur Squamous Epith Cells (0-5) Amorphous Sediment Urine Bacteria (NONE) Urine Mucus SARS-CoV-2 RNA (RT -PCR) (NOT DETECTED) SARS-CoV-2 Ag (Rap id) (Negative) Discharge Plan Discharge Patient Disposition: Admitted As Inpatient Admit Provider: Pearl Allen Clinical Impression: Lingular pneumonia Condition: Stable Referrals: Xenia Eugene MD [Physician] - 1 week Ry Muñoz MD [Hospitalist] - 1-3 days (You will get a call from Dr. Muñoz office in the next 24 hours if not please call his office) Becca Morrison MD [Primary Care Provider] - (Please call patient at home with a hospital follow up appointment. Faxed information to clinic) Discharge Diet: Regular Discharge Activity: Resume usual activity Patient Instructions: Aspirin (By mouth), Atorvastatin (By mouth), Levofloxacin (By mouth), Urinary Tract Infection in Women (DC), Lung Cancer (DC), Ischemic Stroke (DC), Left Hemispheric Stroke (DC), Self Care Measures After a Stroke (DC), Positron Emission Tomography of the Chest (DC), Needle Biopsy of the Lung (DC) Additional Instructions: -Please drink plenty of electrolyte balance fluids such as Gatorade, Ensure drinks or boost daily -For stroke take aspirin and statin as prescribed -If you have bloody or black stools please come back to the emergency room -Please follow-up with neurology in 1 to 2 weeks, if you have recurrent strokelike symptoms call 911 -Please follow-up with oncology in 1 to 2 days, for lung mass, and further work- up Discharge Date/Time: 12/09/19 23:46 Coding Level of Care Code ED Rn [facility] Fwd Exam Comprehensive
--- NOTE | 2019-12-09 18:17 | ECG_ITS ---
[facility] Test Date: 2019-12-09 Pat Name: Dorys Alcantara Department: Room: Gender: Female Cutter Tender: : 1945 Requested By: Calin Camacho Order Number: [id number] Amarilys MD: Yeni Rhodes M.D. Measurements Intervals [place] Rate: 79 P: -28 MI: 173 QRS: -52 QRSD: 109 T: 31 QT: 366 QTc: 420 Interpretive Statements SINUS RHYTHM LEFT AXIS DEVIATION [QRS AXIS < -30] ANTEROSEPTAL MYOCARDIAL INFARCTION , OF INDETERMINATE AGE [40+ ms Q WAVE IN V1-V4] No previous ECG available for comparison Electronically Signed On 12-10-2019 15:09:41 CDT by Yeni Rhodes M.D. [id number]
--- NOTE | 2019-12-09 18:17 | XRR_ITS ---
PROCEDURE INFORMATION: Exam: XR Chest, 1 View Exam date and time: 12/09/2019 6:29 PM Age: 74 years old Clinical indication: Cough and dyspnea; Additional info: Dyspnea/cough TECHNIQUE: Imaging protocol: XR of the chest Views: 1 view. COMPARISON: No relevant prior studies available. FINDINGS: Lungs: There is airspace opacity in the lingula compatible with probable pneumonic infiltrate obscuring the left heart border. Mild right basilar ground-glass opacity compatible with mild pneumonitis versus atelectasis is noted. The lungs are hyperinflated. Pleural space: Unremarkable. No pleural effusion. No pneumothorax. Heart/Mediastinum: The heart is enlarged. Bones/joints: No acute abnormality. XR/XR chest 1V portable [id number] IMPRESSION: There is airspace opacity in the lingula compatible with probable pneumonic infiltrate obscuring the left heart border.
[2019-12-09] MEDS: sodium chloride 0.9% 500 ML 999 ML IV (18:22)
[2019-12-09 18:41] LABS: ABG PCO2 36.9 mmHg (35-45); ABG PH Result 7.45 (7.35-7.45); Alveolar-Arterial Oxygen Gradi 4.6 mmHg (5-10); Arterial Blood Gas Hematocrit 39.7 % (37-47); Base Excess ABG 1.7 mmol/L (-2.0-2.0); Blood Gas Allen Test Pos; Blood Gas Operator Identificat ED; Blood Gas Sample Site Radial, left; Blood Gas Sample Type Arterial; HCO3 ABG 25.6 mmol/L (22-26); HGB O2 Sat 97.6 % (95-100); Ionized Calcium Level - ABG 1.2 mmol/L (1.1-1.4); Methemoglobin 0.6 % (0.4-1.5); Oxygen Device NC; Oxygen Saturation ABG 99.2; Potassium Level - ABG 4.2 mmol/L (3.5-5.0); Total Hemoglobin 12.9 g/dL (12-16)
[2019-12-09 18:43] LABS: Basophils % 0.1 %; Eosinophils # 0.3 10^3/uL (0.0-0.8); Eosinophils % 4.4 %; Hematocrit 40.1 % (37.0-47.0); Hemoglobin 12.8 g/dL (11.5-15.3); Lymphocytes # 0.7 10^3/uL (0.8-4.8); Lymphocytes % 10.8 %; Mean Corpuscular HGB Conc 31.9 g/dL (30.0-36.0); Mean Corpuscular Hemoglobin 28.5 pg (28.0-34.0); Mean Corpuscular Volume 89.3 fL (81-99); Mean Platelet Volume 9.4 fL (7.4-10.4); Monocytes # 0.6 10^3/uL (0.2-0.9); Monocytes % 8.2 %; Neutrophils # 5.24 10^3/uL (1.8-7.7); Neutrophils % 76.2 %; Nucleated Red Blood Cells % 0 %; Platelet Count 285 10^3/cmm (130-400); Red Blood Count 4.49 10^6/uL (4.1-5.3); Red Cell Distribution Width 13.4 % (12.1-15.1); White Blood Count 6.9 10^3/uL (4.0-10.0)
[2019-12-09 19:02] VITALS: BP 126/66; PULSE 79; RESP 18; O2SAT 94
[2019-12-09 19:04] LABS: Alanine Aminotransferase 41 U/L (0-33); Albumin Level 3.2 g/dL (3.5-5.2); Alkaline Phosphatase 126 IU/L (35-105); Anion Gap 10.3 (5-19); Aspartate Amino Transferase 28 U/L (0-32); Blood Urea Nitrogen 18 mg/dL (8-23); Calcium 8.5 mg/dL (8.5-10.5); Carbon Dioxide 28 mmol/L (22-29); Chloride 99 mmol/L (98-107); Creatine Phosphokinase 20 U/L (26-192); Globulin 4.3 g/dL (1.3-4.6); Glucose 128 mg/dL (65-115); Osmolality Calculated 274 mOsm/kg (285-295); Potassium 4.3 mmol/L (3.5-5.1); Sodium 133 mmol/L (136-145); Total Bilirubin 0.3 mg/dL (0.15-1.2); Total Protein 7.5 g/dL (6.6-8.7)
[2019-12-09 20:00] VITALS: BP 116/67; PULSE 77; RESP 16; O2SAT 96
[2019-12-09 20:44] LABS: Add Urine Microscopic? YES; Bilirubin Urine Neg (NEGATIVE); Blood Urine Neg (Negative); Glucose Urine UA Norm (Normal); Ketones Urine Negative (Negative); Leukocyte Esterase Urine 2+ (Negative); Nitrate Urine Negative (Negative); Protein Urine Neg (Negative); Specific Gravity, Urine 1.015 (1.005-1.030); Urine Appearance SL Hazy (CLEAR); Urine Color Yellow (Yellow); Urobilinogen Urine Norm (Negative); pH Urine 6 (5-7)
[2019-12-09 20:51] LABS: Add Urine Culture? No; Bacteria Urine 1+; Mucus Urine 1+; RBC Urine 0-4 /hpf (0-2); Squamous Epithelial Cell Urine 15-25 (0-5); WBC Urine 15-25 /hpf (0-5)
[2019-12-09 21:00] VITALS: BP 141/86; PULSE 83; RESP 16; O2SAT 96
--- NOTE | 2019-12-09 21:07 | P.HP_ITS ---
Providers/Chief Complaint Primary Care Provider: Becca Morrison MD Chief Complaint: GENERALIZED WEAKNESS History of Present Illness Dorys Alcantara is a 74 year old female who carries history of non-oxygen dependent COPD, former smoker, came in today with chief complaint of worsening shortness of breath. at the bedside who is stating that for last few weeks she has been getting more tired, lethargic, she has been experiencing shortness of breath on exertion, no fever, nausea, vomiting or diarrhea has been noticed, she has been having dry cough, no recent sick contacts. Her symptoms has been worsening that is why decided to bring her to the ER. is worried that her mentation is worsening, she has been getting confusion spells on and off. Patient is denying chest pain, nausea, vomiting, diarrhea, dysuria. She is denying previous history of [place], heart failure, stroke. Patient has been evaluated by pain management clinic for complex regional pain syndrome, she has been getting Tylenol. Diagnosis in the ER revealed hypertension, tachycardia, patient is afebrile, COVID antigen negative, mild signs of clinical dehydration, patient is awake alert oriented x3 GCS 15 Not complaining of dysuria, urine sample most likely contaminant, We will request B12, TSH level, chest x-ray revealed lingular pneumonia Review of Systems Const: Reports: chills, body aches, change in appetite, change in weight, fatigue, malaise and change in sleep pattern; Denies: fever(s) Eyes: Denies: change in vision ENMT: Denies: throat pain Card: Reports: swelling of feet/ankles, lightheadedness and dyspnea on exertion; Denies: chest pain Resp: Reports: dyspnea and non-productive cough GI: Denies: abdominal pain, nausea, vomiting, diarrhea or constipation : Denies: flank pain Musc: Reports: extremity swelling, muscle cramps and muscle weakness Neuro: Reports: dizziness, vertigo and confusion Psych: Reports: anxiety Endo: Denies: polyuria Joshua/Lymph: Denies: easy bruising All/Imm: Denies: urticaria Medications/Allergies Home Medications Medication Instructions Recorded Confirmed Last Taken Type fluticasone 250 mcg-salmeterol 50 1 inh INHALATION BID 08/09/19 12/09/19 12/09/19 History mcg/dose blistr powdr for inhalation tiotropium bromide 18 mcg capsule 1 cap INHALATION DAILY 08/09/19 12/09/19 12/09/19 History with inhalation device acetaminophen [Tylenol Extra 500 mg PO TID PRN 12/09/19 12/09/19 Unknown History Strength] [id number]-lutein 1 tab PO DAILY 12/09/19 12/09/19 Unknown History [Centrum Silver Women] Allergies Allergy/AdvReac Type Severity Reaction Status Date / Time Penicillins Allergy rash Verified 12/09/19 18:09 PFSH Acute PFSH: Medical History COPD (chronic obstructive pulmonary disease) Former smoker Tinnitus Ulcerative colitis Surgical History Hx of hernia repair Hx of tonsillectomy Hx of tonsillectomy Hx of tubal ligation Family History Other Diabetes Hypertension Social History Smoking and tobacco status: former smoker Alcohol intake: never Substance/Drug Use: never Lives independently: Yes Household members: spouse Housing: House Vitals/I&O/Wt Last Vital Signs Temp 98.2 F 12/09/19 17:44 Pulse 77 12/09/19 20:00 Resp 16 12/09/19 20:00 BP 116/67 12/09/19 20:00 Pulse Ox 96 12/09/19 20:00 Weight last 48 hrs Weight 68.039 kg Physical Exam Narrative: EXAM NARRATIVE: This is a very pleasant elderly female Mild signs of clinical dehydration Awake alert oriented x3 GCS 15 She is able to understand all my verbal commands however has short attention span and slow to response Bilateral breath sounds without rhonchi or crackles Abdomen soft nontender bowel sound present S1, S2 sinus tachycardia Appears very fatigued and lethargic Lower extremity no active edema gangrene or ulcer She has paresthesia of lower extremity Data : 12/09/19 18:33 12/09/19 18:33 Micro: Microbiology 12/09/19 18:36 Blood Culture - Preliminary Blood SPECIMEN COLLECTED 12/09/19 18:33 Blood Culture - Preliminary Blood SPECIMEN COLLECTED A&P Assessment and plan (1) CRPS (complex regional pain syndrome type II): Status: Acute (2) Lingular pneumonia: Status: Acute (3) Delirium: Status: Acute (4) Fatigue: Status: Acute Additional A&P Information Acute delirium due to community-acquired pneumonia Lingular pneumonia Not septic No active respiratory No active signs of confusion I would treat her with ceftriaxone and azithromycin request urine antigens, Pneumonia severity index: Mild, COVID antigen negative Patient is not complaining of dysuria however urine analysis seems contaminant We will check TSH, B12 level to rule out reversible causes of delirium Non-oxygen dependent COPD: No acute exacerbation DuoNeb every 6 PRN use No active wheezing, no need of steroid Currently saturating well on room Blood gas reviewed Complex regional pain syndrome: Following up with pain management clinic Currently on Tylenol I would be hesitant to add duloxetine at this point Full code DVT prophylaxis Lovenox Cardiac diet Attestations Medical Necessity Statement*: Anticipating discharge in less than 48 hours currently need overnight monitoring for community-acquired pneumonia, check B12 and TSH to rule out reversible etiology for delirium Time Spent in Patient Care: (>than 50% of time spent in counselling and/or direct pt care on unit) . 40 minutes Coding Level of Care Code Acute [place] Utility Worker for g Fwd Diagnoses CRPS (complex regional pain syndrome type II) G56.40 Lingular pneumonia J18.9 Delirium R41.0 Fatigue R53.83
[2019-12-09] MEDS: levofloxacin-dextrose 5 % 750 MG/150 ML PREMIX 100 MG IV (21:12)
[2019-12-09 22:00] VITALS: BP 135/72; PULSE 79; RESP 16; O2SAT 95
[2019-12-09 22:09] LABS: SARS Covid-2 Antigen Negative (Negative)
[2019-12-10] VITALS (8 sets, daily range): BP systolic 139–154; BP diastolic 61–78; PULSE 80–107; RESP 16–20; TEMP 36.7–37.1; O2SAT 91–95
[2019-12-10] MEDS: enoxaparin 40 mg/0.4 mL Syringe SUBCUT ×2 (00:28→23:52)
[2019-12-10] MEDS: sodium chloride 0.9% 1,000 ML 75 ML IV ×2 (00:28→15:07)
[2019-12-10 01:49] LABS: Thyroid Stimulating Hormone 1.87 uIU/mL (0.27-4.20); Vitamin B12 481 pg/mL (232-1245)
[2019-12-10 04:30] LABS: Basophils % 0.2 %; Eosinophils # 0.3 10^3/uL (0.0-0.8); Eosinophils % 6.4 %; Hematocrit 36.7 % (37.0-47.0); Hemoglobin 11.7 g/dL (11.5-15.3); Lymphocytes # 0.9 10^3/uL (0.8-4.8); Lymphocytes % 18.1 %; Mean Corpuscular HGB Conc 31.9 g/dL (30.0-36.0); Mean Corpuscular Hemoglobin 28.2 pg (28.0-34.0); Mean Corpuscular Volume 88.4 fL (81-99); Mean Platelet Volume 10.3 fL (7.4-10.4); Monocytes # 0.5 10^3/uL (0.2-0.9); Monocytes % 10.9 %; Neutrophils # 3.12 10^3/uL (1.8-7.7); Nucleated Red Blood Cells % 0 %; Platelet Count 265 10^3/cmm (130-400); Red Blood Count 4.15 10^6/uL (4.1-5.3); Red Cell Distribution Width 13.4 % (12.1-15.1); White Blood Count 4.9 10^3/uL (4.0-10.0)
[2019-12-10 04:50] LABS: Anion Gap 9.1 (5-19); Blood Urea Nitrogen 16 mg/dL (8-23); Carbon Dioxide 26 mmol/L (22-29); Chloride 105 mmol/L (98-107); Glucose 100 mg/dL (65-115); Osmolality Calculated 278 mOsm/kg (285-295); Potassium 4.1 mmol/L (3.5-5.1); Sodium 136 mmol/L (136-145)
[2019-12-10] MEDS: azithromycin 250 mg Tablet 500 MG PO (08:32)
[2019-12-10] MEDS: cefTRIAXone 1,000 MG in sodium chloride 0.9% (plus) 50 ML 100 MG IV (08:32)
--- NOTE | 2019-12-10 08:59 | CTR_ITS ---
PROCEDURE INFORMATION: Exam: CT Angiography Chest With Contrast Exam date and time: 12/10/2019 10:21 AM Age: 74 years old Clinical indication: Shortness of breath TECHNIQUE: Imaging protocol: Computed tomographic angiography of the chest with intravenous contrast. 3D rendering (Not supervised by radiologist): MIP and/or 3D reconstructed images were created by the technologist. Radiation optimization: All CT scans at this facility use at least one of these dose optimization techniques: automated exposure control; mA and/or kV adjustment per patient size (includes targeted exams where dose is matched to clinical indication); or iterative reconstruction. Contrast material: OMNI 350; Contrast volume: 95 ml; Contrast route: INTRAVENOUS (IV); COMPARISON: CR XR chest 1V portable [id number] 12/09/2019 6:18 PM RADIATION DOSE METRICS: Total DLP (mGy-cm): 544.66 FINDINGS: Pulmonary arteries: There is no pulmonary embolus. Aorta: Unremarkable. No aortic aneurysm. No aortic dissection. Lungs: There is severe emphysematous changes. There is subpleural atelectasis of the dependent portions of the lungs. There is a mass in the left lower lobe measuring 4.9 x 4.0 x 6.7 cm in size image 400. There is mild apical fibrosis or scarring. There is a 3 mm nodule right upper lobe image 105. There is some mild ground-glass opacity with a tree-in-bud densities in the lungs compatible with mild pneumonitis or edema. Pleural space: Unremarkable. No pneumothorax. No pleural effusion. Heart: There is cardiomegaly. There is a small pericardial effusion. Lymph nodes: Unremarkable. No enlarged lymph nodes. Liver: Subcentimeter hepatic hypodensities are too small to characterize. Gallbladder and bile ducts: The gallbladder demonstrates layering density consistent with noncalcified stones or sludge. There is no wall thickening or pericholecystic fluid to suggest cholecystitis. Adrenals: There is nonspecific diffuse bilateral adrenal thickening. Bones/joints: Unremarkable. No acute fracture. Soft tissues: Unremarkable. CT/CT angio chest PE protcl [id number] IMPRESSION: 1. There is no pulmonary embolus. 2. Large spiculated mass left lower lobe measuring up to 6.7 cm in greatest dimension concerning for pulmonary neoplasm. There is a 3 mm nodule right upper lobe.Highly suspicious nodule(s). Consider PET/CT, or tissue sampling.(MacMahon, et al., Fleischner Society, 2017) 3. There is some mild ground-glass opacity with a tree-in-bud densities in the lungs compatible with mild pneumonitis or edema. No lobar consolidation. Radiation Dose CTDIVOL = (mGy): DLP = 544.66 (mGy-cm)
--- NOTE | 2019-12-10 09:00 | ECG_ITS ---
[facility] Test Date: 2019-12-10 Pat Name: Dorys Alcantara Department: Room: 261 Gender: Female Door Patcher: : 1945 Requested By: Byron Nunez Order Number: [id number] Amarilys MD: Davon Scott M.D. Measurements Intervals [place] Rate: 87 P: -16 [place]: 195 QRS: -59 QRSD: 117 T: 30 QT: 372 QTc: 450 Interpretive Statements SINUS RHYTHM MARKED LEFT AXIS DEVIATION [QRS AXIS < -30] ANTEROSEPTAL MYOCARDIAL INFARCTION [40+ ms Q WAVE IN V1-V4], OF INDETERMINATE AGE Compared to ECG 12/09/2019 18:54:26 No significant changes Electronically Signed On 12-10-2019 20:53:07 CDT by Davon Scott M.D. [id number]
--- NOTE | 2019-12-10 09:00 | USCV_ITS ---
Dorys Alcantara Age: 74 Gender: F : 1945 Exam Date: 12/10/2019 10:37 Ordering Phys: Byron Nunez MD Technologist: Mio Maddox [place] [facility] [place]B BP: 124 / 68 HR: 86 Rhythm: Sinus Technical Quality: Fair MEASUREMENTS (Male / Female) Normal Values 2D ECHO LV Diastolic Diameter PLAX 3.4 cm 4.2 - 5.9 / 3.9 - 5.3 cm LV Systolic Diameter PLAX 2.1 cm IVS Diastolic Thickness 1.0 cm 0.6 - 1.0 / 0.6 - 0.9 cm IVS Systolic Thickness 1.4 cm LVPW Diastolic Thickness 1.1 cm 0.6 - 1.0 / 0.6 - 0.9 cm LVPW Systolic Thickness 1.4 cm LVOT Diameter 2.0 cm LV Ejection Fraction 2D Teich 70.3 % LV Ejection Fraction MOD 2C 62.8 % LV Ejection Fraction 2C AL 65.6 % LA Diameter 4.1 cm LA Width 3.4 cm LA Height 4.3 cm RA Width 3.9 cm RA Height 4.2 cm Aorta at Sinotubular Diameter 0.8 cm M-MODE LV Diastolic Diameter MM 5.0 cm 4.2 - 5.9 / 3.9 - 5.3 cm LV Systolic Diameter MM 3.1 cm LV Ejection Fraction MM Teich 69.5 % IVS Diastolic Thickness MM 0.9 cm 0.6 - 1.0 / 0.6 - 0.9 cm IVS Systolic Thickness MM 1.6 cm LVPW Diastolic Thickness MM 1.2 cm 0.6 - 1.0 / 0.6 - 0.9 cm LVPW Systolic Thickness MM 1.9 cm RV Diastolic Diameter MM 1.4 cm Aortic Annulus Diameter 3.7 cm LA Ao Ratio MM 1.1 MV E Point Septal Separation 1.1 cm DOPPLER AV Peak Velocity 162.0 cm/s LVOT Peak Velocity 160.0 cm/s AV Area Cont Eq vti 2.6 cm squared AV Area Cont Eq pk 3.2 cm squared MV Area PHT 5.0 cm squared Mitral E to A Ratio 0.6 MV E' Velocity 10.0 cm/s Mitral E to MV E' Ratio 9.5 Mitral E to LV E' Lateral Ratio 8.3 Mitral E to LV E' Septal Ratio 11.2 TR Peak Velocity 182.0 cm/s TR Peak Gradient 13.2 mmHg TV Peak E Velocity 69.0 cm/s Right Atrial Pressure 3.0 mmHg Pulmonary Artery Systolic Pressu 16.2 mmHg PV Peak Velocity 100.0 cm/s FINDINGS Left Ventricle Normal left ventricular size and systolic function, EF 65 %. Mild left ventricular hypertrophy. No gross wall motion normalities noted. Segmental wall motion analysis difficult because of the poor ultrasonic window.Grade I/IV diastolic dysfunction (abnormal relaxation filling pattern), normal to mildly elevated filling pressures. Right Ventricle Normal right ventricular size and systolic function. Right Atrium Possibly of normal size Left Atrium Left atrium, upper limit of normal size Mitral Valve Thickened mitral valve. Mild mitral annular calcification. Aortic Valve Thickened aortic valve. Tricuspid Valve Tricuspid valve not well visualized. Pulmonic Valve Pulmonic valve not well visualized. Pericardium No pericardial effusion. Aorta Normal aortic annulus size. CONCLUSIONS Normal left ventricular size and systolic function, EF 65 %. Mild left ventricular hypertrophy. No gross wall motion normalities noted. Segmental wall motion analysis difficult because of the poor ultrasonic window. Grade I/IV diastolic dysfunction (abnormal relaxation filling pattern), normal to mildly elevated filling pressures. Left atrium, upper limit of normal size. Thickened mitral valve. Mild mitral annular calcification. Thickened aortic valve. There is no pericardial effusion. Technically difficult study because of the poor ultrasonic window. Dr Davon Scott MD [facility] (Electronically Signed) Final Date: 10 December 2019 14:50 S
--- NOTE | 2019-12-10 09:26 | CTR_ITS ---
PROCEDURE INFORMATION: Exam: CT Head Without Contrast Exam date and time: 12/10/2019 4:04 PM Age: 74 years old Clinical indication: Altered mental status/memory loss; Additional info: [facility] TECHNIQUE: Imaging protocol: Computed tomography of the head without contrast. Radiation optimization: All CT scans at this facility use at least one of these dose optimization techniques: automated exposure control; mA and/or kV adjustment per patient size (includes targeted exams where dose is matched to clinical indication); or iterative reconstruction. COMPARISON: No relevant prior studies available. RADIATION DOSE METRICS: Total DLP (mGy-cm): 773.06 FINDINGS: Brain: No intracranial hemorrhage. Small area of encephalomalacia left anterior upper frontal lobe consistent with old infarct. Otherwise normal culp-white differentiation with no evidence of acute infarct or edema. No abnormal mass effect or midline shift. No extra-axial fluid collection. Ventricles: Normal. No ventriculomegaly. Bones/joints: No acute fracture. Sinuses: Visualized sinuses are unremarkable. No fluid levels. Mastoid air cells: Visualized mastoid air cells are well aerated. Soft tissues: Unremarkable. CT/CT head wo con* [id number] IMPRESSION: 1. No acute findings. 2. Small area of encephalomalacia left frontal lobe consistent with old infarct. Radiation Dose CTDIVOL = (mGy): DLP = 773.06 (mGy-cm)
[2019-12-10 10:17] LABS: Troponin(5th) Baseline 17 ng/L (0-10)
[2019-12-10 10:21] LABS: NT Pro B Type Natriuretic Pept 445 pg/mL (0-125); Procalcitonin 0.11 ng/mL (0-0.5)
[2019-12-10 10:32] LABS: C Reactive Protein 6.3 mg/L (0.0-4.9)
--- NOTE | 2019-12-10 11:00 | ECG_ITS ---
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 Measurements Intervals [place] Rate: 82 P: -11 HI: 197 QRS: -55 QRSD: 118 T: 18 QT: 379 QTc: 444 Interpretive Statements SINUS RHYTHM MARKED LEFT AXIS DEVIATION [QRS AXIS < -30] ANTEROSEPTAL MYOCARDIAL INFARCTION [40+ ms Q WAVE IN V1-V4], OF INDETERMINATE AGE Compared to ECG 12/10/2019 10:07:41 No significant changes Electronically Signed On 12-12-2019 0:22:35 CDT by Davon Scott M.D. [id number]
--- NOTE | 2019-12-10 14:11 | PM.PN ---
Subjective Subjective: Interval history: This morning patient was examined, she is in the general medical floors, patient has no complaints, she does not know why she is here in the hospital, no fevers, no chills, no nausea, no vomiting, no chest pain, shortness of breath, no joint pains, no headache, no blurry vision, no strokelike symptoms, no diarrhea, no constipation, no dysuria, no hematuria patient's affect is a bit strange, she requires redirection during questioning, seems confused at times with my simple questions, she just not acting appropriately, is withdrawn at times, has inappropriate laughter to simple questions I spoke to patient's , patient states that roughly 2 weeks ago, patient started acting more confused than her normal self, no falls, no injuries, no fevers, chills, no history of travel, but she just not been acting appropriately, not acting her normal self, seems more forgetful, he cannot exactly pinpoint what is going on, but tells me she is just not acting her normal self, she has not voiced any particular complaints Vitals/I&O/Wt Last Vital Signs Temp 98.3 F 12/10/19 12:00 Pulse 80 12/10/19 12:00 Resp 16 12/10/19 12:00 BP 151/75 12/10/19 12:00 Pulse Ox 94 12/10/19 12:00 12/09/19 12/10/19 12/10/19 22:59 06:59 14:59 Intake Total 120 / 120 120 / 120 Output Total 400 / 400 Balance -280 / -280 120 / 120 Weight last 48 hrs Weight 68.039 kg Physical Exam Const: COMMON NORMALS: no acute distress and patient oriented x3 HENMT: COMMON NORMALS: normocephalic HEAD & SCALP: normocephalic Neck/C-Spine: COMMON NORMALS: no JVD Resp: COMMON NORMALS: normal respiratory effort, No retractions, No use of accessory muscles and clear to auscultation bilaterally AUSCULTATION: clear to auscultation bilaterally Cardio: COMMON NORMALS: no JVD, regular rate, regular rhythm, S1 normal heart sound present and S2 normal heart sound present RATE: regular rate RHYTHM: regular rhythm HEART SOUNDS: S1 normal heart sound present and S2 normal heart sound present GI: COMMON NORMALS: Normal to inspection, nondistended, normoactive bowel sounds present, Soft to palpation, non-tender, No hepatosplenomegaly present, no masses and no bruits PALPATION: Yes Soft to palpation and Yes No hepatosplenomegaly present Extremity: COMMON NORMALS: capillary refill normal, no clubbing, cyanosis or edema, no calf tenderness and no pedal edema Neuro: COMMON NORMALS: patient oriented x3 Psych: COMMON NORMALS: mental status grossly normal, Normal thought process present and speech normal ATTITUDE: Yes Withdrawn affect present ACTIVITY/MOTOR BEHAVIOR: Yes appropriate eye contact SPEECH: Yes normal speech MOOD & AFFECT: Yes expansive affect THOUGHT PROCESS: Normal thought process present THOUGHT CONTENT: Yes Normal thought content present ATTENTION/CONCENTRATION: Yes concentration grossly impaired MEMORY/COGNITION: Yes memory grossly intact Data : 12/10/19 04:08 12/10/19 04:08 Micro: Microbiology 12/10/19 05:12 Legionella Urinary Antigen - Final Urine,Voided Bacterial Antigens - Final 12/09/19 18:36 Blood Culture - Preliminary Blood SPECIMEN COLLECTED 12/09/19 18:33 Blood Culture - Preliminary Blood SPECIMEN COLLECTED A&P Assessment and plan (1) CRPS (complex regional pain syndrome type II): Status: Acute (2) Lingular pneumonia: Status: Acute (3) Delirium: Status: Acute (4) Fatigue: Status: Acute Additional A&P Information Acute delirium due to community-acquired pneumonia Lingular pneumonia Not septic No active respiratory Has intermittent episodes of confusion I would treat her with ceftriaxone and azithromycin request urine antigens, blood cultures, urine cultures We will obtain a CT of the head, CT angiogram of the chest COVID antigen negative Patient is not complaining of dysuria however urine analysis seems contaminant TSH with within normal notes, B12 within normal limits Non-oxygen dependent COPD: No acute exacerbation DuoNeb every 6 PRN use No active wheezing, no need of steroid Currently saturating well on room Blood gas reviewed Complex regional pain syndrome: Following up with pain management clinic Currently on Tylenol I would be hesitant to add duloxetine at this point Full code DVT prophylaxis Lovenox Cardiac diet Attestations Medical Necessity Statement*: Patient requires hospitalization due to acute delirium from lingular pneumonia Coding Level of Care Code Acute Formulation Technician for [facility] Diagnoses CRPS (complex regional pain syndrome type II) G56.40 Lingular pneumonia J18.9 Delirium R41.0 Fatigue R53.83
--- NOTE | 2019-12-10 15:00 | ECG_ITS ---
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 Measurements Intervals [place] Rate: 90 P: -17 AL: 198 QRS: -56 QRSD: 109 T: 39 QT: 359 QTc: 440 Interpretive Statements SINUS RHYTHM WITH OCCASIONAL VENTRICULAR PREMATURE COMPLEXES MARKED LEFT AXIS DEVIATION [QRS AXIS < -30] ANTEROSEPTAL MYOCARDIAL INFARCTION [40+ ms Q WAVE IN V1-V4], OF INDETERMINATE AGE Compared to ECG 12/10/2019 12:08:29 Ventricular premature complex(es) now present Myocardial infarct finding still present Electronically Signed On 12-12-2019 0:23:26 CDT by Davon Scott M.D. [id number]
[2019-12-10 15:30] LABS: Troponin 5 6HR 15.32 ng/L (0-10)
[2019-12-10 15:49] LABS: Troponin 5 6HR Delta -1.68 ng/L (0-12)
[2019-12-10] MEDS: iohexol 350 mg/mL 100 mL Btl IV (16:32)
[2019-12-11 00:48] VITALS: BP 138/71; PULSE 79; RESP 18; TEMP 36.9; O2SAT 94
[2019-12-11 04:00] VITALS: BP 153/71; PULSE 77; RESP 20; TEMP 37.2; O2SAT 92
[2019-12-11 05:13] LABS: Basophils % 0.2 %; Eosinophils # 0.5 10^3/uL (0.0-0.8); Eosinophils % 9.6 %; Hematocrit 35.6 % (37.0-47.0); Hemoglobin 11.5 g/dL (11.5-15.3); Lymphocytes # 1.3 10^3/uL (0.8-4.8); Lymphocytes % 25.3 %; Mean Corpuscular HGB Conc 32.3 g/dL (30.0-36.0); Mean Corpuscular Hemoglobin 29.3 pg (28.0-34.0); Mean Corpuscular Volume 90.6 fL (81-99); Mean Platelet Volume 10.1 fL (7.4-10.4); Monocytes # 0.7 10^3/uL (0.2-0.9); Monocytes % 13.2 %; Neutrophils # 2.58 10^3/uL (1.8-7.7); Neutrophils % 51.5 %; Nucleated Red Blood Cells % 0 %; Platelet Count 268 10^3/cmm (130-400); Red Blood Count 3.93 10^6/uL (4.1-5.3); Red Cell Distribution Width 13.6 % (12.1-15.1)
--- NOTE | 2019-12-11 05:23 | PC.NURSE ---
patient voided x1 overnight, during void patient missed hat, unable to measure urine.
[2019-12-11] MEDS: sodium chloride 0.9% 1,000 ML 75 ML IV ×2 (05:25→10:47)
[2019-12-11 05:43] LABS: Alanine Aminotransferase 29 U/L (0-33); Albumin Level 2.7 g/dL (3.5-5.2); Alkaline Phosphatase 109 IU/L (35-105); Anion Gap 5.8 (5-19); Aspartate Amino Transferase 21 U/L (0-32); Blood Urea Nitrogen 13 mg/dL (8-23); Calcium 7.8 mg/dL (8.5-10.5); Carbon Dioxide 27 mmol/L (22-29); Chloride 105 mmol/L (98-107); Globulin 3.4 g/dL (1.3-4.6); Glucose 93 mg/dL (65-115); Magnesium 1.9 mg/dL (1.7-2.3); Osmolality Calculated 274 mOsm/kg (285-295); Phosphorus 3.3 mg/dL (2.5-4.5); Potassium 3.8 mmol/L (3.5-5.1); Sodium 134 mmol/L (136-145); Total Bilirubin 0.4 mg/dL (0.15-1.2); Total Protein 6.1 g/dL (6.6-8.7)
[2019-12-11 08:00] VITALS: BP 157/70; PULSE 77; RESP 18; TEMP 37.2; O2SAT 92
[2019-12-11] MEDS: cefTRIAXone 1,000 MG in sodium chloride 0.9% (plus) 50 ML 100 MG IV (08:03)
[2019-12-11 11:27] VITALS: BP 155/69; PULSE 80; RESP 18; TEMP 37.1; O2SAT 91
[2019-12-11 11:43] VITALS: PULSE 71; RESP 18; O2SAT 94
[2019-12-11] MEDS: azithromycin 250 mg Tablet PO (14:10)
--- NOTE | 2019-12-11 14:48 | PM.DCS ---
Discharge Providers Date of Admission: 12/10/19 16:07 Date of Discharge: December 11, 2019 Attending Provider at Admission: Pearl Allen MD Attending Provider at Discharge: Byron Nunez MD Primary Care Provider: Becca Morrison MD Diagnoses at Discharge Discharge Diagnosis (1) CRPS (complex regional pain syndrome type II): Status: Acute (2) Lingular pneumonia: Status: Acute (3) Delirium: Status: Acute (4) Fatigue: Status: Acute Reason for Visit Reason for Visit: GENERALIZED WEAKNESS Hospital Course Discharge Summary: This is a 74-year-old female who carries a diagnosis of non-oxygen dependent COPD, former smoker, who presents to [facility] due to complaints of shortness of breath and altered mental status. For patient's shortness of breath, no active COPD exacerbation, no wheezing, she was found to have a lingular pneumonia on chest x-ray, treated with broad-spectrum antibiotics, CT angiogram of the chest showed mild groundglass opacity with tree-in-bud densities in the lungs, no significant procalcitonin elevation, blood cultures no growth so far, urine bacterial antigens negative, patient did not require any oxygen during her hospitalization. Thus I have discharged patient on 7 remaining days of Levaquin, with close follow-up with outpatient physician During patient's hospitalization she was found to have Large spiculated mass left lower lobe measuring up to 6.7 cm in greatest dimension concerning for pulmonary neoplasm. There is a 3 mm nodule right upper lobe.Highly suspicious nodule(s). Patient has a history of smoking more than 20 years, quit smoking since the last 7 years. I discussed the case with Dr. Muñoz, who recommended an outpatient follow-up in the next few days for PET scan, MRI of the brain, and considering CT-guided lung biopsy versus endobronchial biopsy. I had a discussion with patient, patient's , and patient's family at bedside. I advised all parties that cancer is tissue diagnosis, she will require further work-up, and they all are agreeable. Patient will follow-up with Dr. Muñoz in the next week, patient was advised to drink plenty of electrolyte balance fluids, Ensure drinks 2 times daily, if any hematemesis or falls please come back to emergency room On admission there was concerns for altered mentation, I would not say she has altered mental status per se, she is alert oriented x3, answers all questions appropriately, but patient has a flat affect, slowed responses, concentration is impaired, she is less talkative (according to family member she is fairly expansive), and when I had given the patient theunfortunate cancer news I did not get any verbal or emotional response from her nor did I get any follow-up questions, its own almost as if the information glossed over her. I thought she might of had a UTI or pneumonia as above, but the findings were fairly mild, nonetheless I have discharged her on Levaquin. Patient CT of her head did show a small area of encephalomalacia left frontal lobe consistent with old infarct, its certainly possible that a stroke has leading to personality changes and her cognitive changes; but I suspect that she has underlying dementia that has been worsening, and now has been caught or noticed by family members. I will have patient follow with Dr. Eugene as outpatient. Nonetheless I discharge the patient on aspirin, statin, and close follow-up with primary care as outpatient. Physical Exam Const: COMMON NORMALS: no acute distress and patient oriented x3 GENERAL APPEARANCE: cooperative and comfortable HENMT: COMMON NORMALS: normocephalic HEAD & SCALP: normocephalic Eye: COMMON NORMALS: Equal, round and reactive pupils present, EOMs intact bilaterally and no papilledema GENERAL EYE: appearance normal, both eyes and all related structures PUPIL: Yes Equal, round and reactive pupils present DIRECT OPHTHALMOSCOPY: Yes no papilledema Neck/C-Spine: COMMON NORMALS: full ROM, no lymphadenopathy, no JVD and Thyroid normal THYROID: Thyroid normal Lymph: LYMPHATIC: no lymphadenopathy noted Resp: COMMON NORMALS: normal respiratory effort, No retractions, No use of accessory muscles and clear to auscultation bilaterally AUSCULTATION: clear to auscultation bilaterally Cardio: COMMON NORMALS: no JVD, regular rate, regular rhythm, S1 normal heart sound present, S2 normal heart sound present, No gallops present (Cardio), No clicks present (Cardio) and No murmurs present (Cardio) RATE: regular rate RHYTHM: regular rhythm HEART SOUNDS: S1 normal heart sound present and S2 normal heart sound present GI: COMMON NORMALS: Normal to inspection, nondistended, normoactive bowel sounds present, Soft to palpation, non-tender and No hepatosplenomegaly present PALPATION: Yes Soft to palpation and Yes No hepatosplenomegaly present Extremity: COMMON NORMALS: normal to inspection, full ROM and no pedal edema Neuro: COMMON NORMALS: patient oriented x3, CN's II-XII intact bilaterally, moves all extremities and no focal motor deficits Psych: COMMON NORMALS: mental status grossly normal, Normal thought process present and cooperative THOUGHT PROCESS: Normal thought process present Discharge Data Data Completed and Pending: Completed Studies During Hospitalization Category Date Time Status CT angio chest PE protcl [id number] Stat Cat Scan 12/10/19 08:[address] head wo con* 7 [id number] Routine Cat Scan 12/10/19 09:26 Completed XR chest 1V yasmine ble [id number] Stat Exams 12/09/19 18:17 Completed CV echo complete* [id number] Routine Ultrasound 12/10/19 09:00 Completed Pending at discharge Category Date Time Status Bacterial Antigen Stat Lab 12/10/19 08:57 Uncollected Blood Culture Sta t Lab 12/09/19 18:36 Results Complete Blood Co unt w/Auto AM LABS Lab 12/12/19 04:00 Ordered Complete Blood Co unt w/Auto AM LABS Lab 12/13/19 04:00 Ordered Comprehensive Met abolic Panel AM LA BS Lab 12/12/19 04:00 Ordered Comprehensive Met abolic Panel AM LA BS Lab 12/13/19 04:00 Ordered MRSA by PCR Stat Lab 12/10/19 08:57 Uncollected Magnesium AM LABS Lab 12/12/19 04:00 Ordered Magnesium AM LABS Lab 12/13/19 04:00 Ordered Phosphorus AM LAB S Lab 12/12/19 04:00 Ordered Phosphorus AM LAB S Lab 12/13/19 04:00 Ordered [facility] SARS-CoV-2 RNA Routine Lab 12/09/19 18:57 Received Sputum Culture an d Gram Stain Stat Lab 12/10/19 08:57 Uncollected Labs from last 24 hours 12/11/19 12/11/19 12/10/19 04:27 04:27 14:45 WBC 5.0 RBC 3.93 L Hgb 11.5 Hct 35.6 L MCV 90.6 MCH 29.3 MCHC 32.3 RDW 13.6 Plt Count 268 MPV 10.1 Neut % (Auto) 51.5 Lymph % (Auto) 25.3 [place] % (Auto) 13.2 Eos % (Auto) 9.6 Baso % (Auto) 0.2 Neut # (Auto) 2.58 Lymph # (Auto) 1.3 [place] # (Auto) 0.7 Eos # (Auto) 0.5 Baso # (Auto) 0.0 Nucleated RBC % (a uto) 0 Nucleated RBCs # 0.0 Sodium 134 L Potassium 3.8 Chloride 105 Carbon Dioxide 27 Anion Gap 5.8 BUN 13 Creatinine 0.6 GFR Calculation Not Reportable Glucose 93 Calculated Osmolal ity 274 L Calcium 7.8 L Phosphorus 3.3 Magnesium 1.9 Total Bilirubin 0.4 AST 21 ALT 29 Alkaline Phosphata se 109 H Troponin T Hi Sens 6Hr 15.32 H Troponin T Hi Sens 6Hr Delta -1.68 L Total Protein 6.1 L Albumin 2.7 L Globulin 3.4 Vitals: Last Vital Signs Temp 98.7 F 12/11/19 11:27 Pulse 71 12/11/19 11:43 Resp 18 12/11/19 11:43 BP 155/69 12/11/19 11:27 Pulse Ox 94 12/11/19 11:43 Discharge Plan Discharge Patient Disposition: Home Condition: Stable Prescriptions: New Levaquin 750 mg tablet 750 mg PO DAILY 7 Days Qty: 7 RF: 0 aspirin 81 mg tablet,delayed release (DR/EC) 81 mg PO DAILY 30 Days Qty: 30 RF: 0 atorvastatin 40 mg tablet 40 mg PO DAILY 30 Days Qty: 30 RF: 0 Continued fluticasone propion-salmeterol [Wixela Inhub] 250-50 mcg/dose blister with device 1 inh INHALATION BID RF: 0 Spiriva with HandiHaler 18 mcg capsule, w/inhalation device 1 cap INHALATION DAILY RF: 0 Tylenol Extra Strength 500 mg Tablet 500 mg PO TID PRN (Reason: Pain) RF: 0 Centrum Silver Women 8 mg iron-400 mcg-300 mcg Tablet 1 tab PO DAILY RF: 0 Discharge Orders: Discharge Order (Routine); Ordered 12/11/19 Ordered By: Byron Nunez Other Ambulatory Orders: Complete Blood Count w/Auto (Routine) Timeframe: 1 Week Location: Determined by Patient Ordered By: Byron Nunez Comprehensive Metabolic Panel (Routine) Timeframe: 1 Week Facility: [facility] - Location: Lab - Main Lab Ordered By: Byron Nunez Referrals: Xenia Eugene MD [Physician] - 1 week Ry Muñoz MD [Hospitalist] - 1-3 days (You will get a call from Dr. Muñoz office in the next 24 hours if not please call his office) Becca Morrison MD [Primary Care Provider] - (Please call patient at home with a hospital follow up appointment. Faxed information to clinic) Discharge Diet: Regular Discharge Activity: Resume usual activity Patient Instructions: Aspirin (By mouth), Atorvastatin (By mouth), Levofloxacin (By mouth), Urinary Tract Infection in Women (DC), Lung Cancer (DC), Ischemic Stroke (DC), Left Hemispheric Stroke (DC), Self Care Measures After a Stroke (DC), Positron Emission Tomography of the Chest (DC), Needle Biopsy of the Lung (DC) Activity Restrictions/Additional Instructions: -Please drink plenty of electrolyte balance fluids such as Gatorade, Ensure drinks or boost daily -For stroke take aspirin and statin as prescribed -If you have bloody or black stools please come back to the emergency room -Please follow-up with neurology in 1 to 2 weeks, if you have recurrent strokelike symptoms call 911 -Please follow-up with oncology in 1 to 2 days, for lung mass, and further work-up Discharge Attestations Time Spent in Discharge Care*: less than 30 min Quality Metrics Clinical Quality Measures During this hospital stay, did patient experience: Stroke Contraindication to Antithrombotic: Antithrombotic prescribed Contraindication to Anticoagulation: Overlap treatment not indicated Contraindication to Statin: Statin prescribed Coding Level of Care Code Acute Manufacturing Engineering Director for g [facility] Diagnoses CRPS (complex regional pain syndrome type II) G56.40 Lingular pneumonia J18.9 Delirium R41.0 Fatigue R53.83
[2019-12-11 15:15] VITALS: BP 150/60; PULSE 71; RESP 18; TEMP 36.6; O2SAT 94
[2019-12-11 15:37] LABS: Quest SARS-CoV-2 RNA NOT DETECTED (NOT DETECTED)
== END 2019-12-11 15:16 | disposition home or self-care (01) | DRG 194 ==
LOC: ER 20:31 → MEDSURG 23:26
PROVIDERS: Emergency Medicine; Family Medicine; Admitting Provider Internal Medicine; PCP Internal Medicine; Visit Provider Family Medicine
DX: J18.9 Pneumonia, unspecified organism (principal); J44.0 Chronic obstructive pulmonary disease with (acute) lower respiratory infection; J44.9 Chronic obstructive pulmonary disease, unspecified; Z87.891 Personal history of nicotine dependence; Z20.828 Contact with and (suspected) exposure to other viral communicable diseases; G56.40 Causalgia of unspecified upper limb
CPT/HCPCS: 12345; 36415; 36600; 70450; 71045; 71275; 80048; 80051; 80053; 81001; 82550; 82607; 82810; 83735; 83880; 83986; 84100; 84145; 84443; 84484; 85025; 86140; 86403; 87040; 87426; 87449; 87635; 93005; 93306; 96372; 99283; G0378; J0696; J1650; J1956; J7030; J7040; Q0144; Q9967

== ENCOUNTER 2019-12-13 09:54 | Outpatient (CLI) | payer MEDICARE, OTHER, SELFPAY ==
--- NOTE | 2019-12-13 12:58 | ONC CON_ITS ---
Dr. Muñoz New Patient Note Patient: Dorys Alcantara Unit #: [id number]: 1945 Dicatated By: Ry Muñoz M.D.Date of Visit: Dec 13, 2019 Onc MED New Patient/Consult Referring Physician: Byron Nunez Chief Complaint: Lung mass. History of Present Illness: This is a 74 year-old woman with left lower lobe lung mass and suspected lung cancer. This patient is a former smoker with known COPD. In the past she had also been diagnosed with ulcerative colitis, though she has never been on any specific treatment for it. In March 2019 she was diagnosed with a complex regional pain syndrome involving the right lower leg and foot. It developed following a fall and what appeared to be a minor injury to the right ankle. According to her she had persistent severe pain which was mainly in the foot. It also mainly bothered her during the daytime, as it did not seem to affect her sleep significantly. She had been getting physical therapy and she was also getting some benefit with acupuncture treatment through a chiropractor. On 12/09/2019 she was admitted to the hospital after presenting to the emergency room with mental status changes. According to both the patient's and her [id number] who are present during the visit, this was an acute change which had developed over a couple of weeks. Her symptoms had initially worsened gradually to the point that she could not talk to him and could not dress herself or feed herself. She had then become incoherent, prompting him to take her to the emergency room. Her head CT at that time showed a small area of encephalomalacia in the left frontal lobe consistent with an old infarct. There were no acute findings. CT pulmonary angiogram showed severe emphysematous changes with subpleural atelectasis of the dependent portions of the lungs. There is no evidence for pulmonary embolus. The most significant finding was a left lower lobe mass measuring 4.9 x 4.0 x 6.7 cm. A 3 mm nodule is noted in the right upper lobe. There were additional groundglass opacities with tree-in-bud densities compatible with mild pneumonitis or edema. There were no enlarged lymph nodes. The liver showed subcentimeter hypodensities which were too small to characterize. The adrenal glands showed nonspecific diffuse bilateral adrenal thickening. During the hospitalization she was given empiric antibiotic coverage with Levaquin. She did show some improvement, and she was able to be discharged home for further outpatient evaluation. Since she has been home she has been doing a little better, though she still requires assistance with ADLs. Family indicates that she is able to respond appropriately, but she is slow to respond. She has very limited activity. Her ECOG score is 3. Her appetite is very poor. Her weight is down 40 pounds. She does not have fever or night sweats. She has not been bothered as much with the leg/foot pain. She has some shortness of breath with her COPD. She has not been having cough, and she does not complain of chest pain. She has had nausea and she also has some acid reflux. She has intermittent diarrhea or constipation. She has not been aware of any blood in the stool. She has no complaints. She has no other joint or bone pain. She indicates that she has been having headache, but she is not able to say how frequently. She also reports having dizziness, and she says she has some numbness/tingling. She has been having significant depression for at least several months. Past Medical History: Her medical history includes chronic obstructive pulmonary disease, complex regional pain syndrome, and ulcerative colitis. Past Surgical History: Her surgical/procedural history includes hernia repair, tonsillectomy, and tubal ligation. Medications: Aspirin 1 Tablet (of 81 mg) Tablet, chewable Oral daily, Atorvastatin Calcium 1 Tablet (of 40 mg) Oral daily, levoFLOXacin 1 Tablet (of 750 mg) Oral daily for 7 days Allergies: Penicillins Social History: Ms. Alcantara is . She has a history of smoking 1 pack of cigarettes daily for approximately 30 years. She quit smoking in 1996. She does not drink alcohol. She has had some very light alcohol use in the past,. Family History: Father age 78 with complications following bowel surgery. Mother at age 92 from an accidental injury. A sister had manic depression and at age 48, apparently with complications of alcohol and medication use. Review Of Symptoms: Constitutional - Her overall performance status has declined significantly per her family. She requires assistance with all ADL's. Her gait is very unsteady and she requires assistance with ambulation. Her appetite is very poor and her weight is down 40 pounds. No fever, night sweats, or hot flashes. ECOG score is 3, Eyes - No change in vision, ENMT - She has hearing loss and tinnitus. No sinus congestion/drainage. No mouth sores. No sore throat or difficulty swallowing, Hematologic/Lymphatic - No abnormal bruising or bleeding, Respiratory - She has COPD, and she does report having some shortness of breath. No cough. No pleuritic pain or hemoptysis, Cardiovascular - No angina pain. No palpitations, Gastrointestinal - She has nausea. No vomiting. She has heartburn, managed with Rolaids. She has ulcerative colitis, and she has intermittent diarrhea or constipation. No blood in the stool or black stools, Genitourinary (F) - No dysuria or hematuria. No urinary frequency. No urgency or incontinence, Musculoskeletal - In March of 2019 she was diagnosed with regional pain syndrome involving her right leg and foot. It developed after a fall. She has been going to physical therapy and she has been seeing a chiropractor for acupuncture. She otherwise manages it with 500 mg Tylenol, Integumentary - No skin complications, Neurologic - She has headaches. She has dizziness. Her family reports she has mentioned this while in the car and at times with walking. She has had Raynaud's symptoms. Her family reports that they were told she has had a stroke. She has some difficutly with speech and she has had significant cognitive changes, Psychiatric - No anxiety. She has severe depression with suicidal thoughts. This first occurred 3-4 months ago per her family. No insomnia. Vital Signs: Performed on Dec 13, 2019 10:49: 0, 22.15, 1.83 sq.m, 69.00 in, 95 % (LOW), 80 /min, 18 /min, 112/49 mm(hg), 97.4 F (LOW), and 150.0 lbs (HIGH). Physical Examination: Constitutional - She appears somewhat weak generally. She has flat affect and she has some degree of psychomotor retardation, Eyes - Sclerae nonicteric. Conjunctivae clear, ENMT - No lesions noted in the oral cavity, Neck - No mass or thyromegaly, Hematologic/Lymphatic - No cervical, clavicular, or axillary adenopathy, Respiratory - Lungs are clear with diminished air movement bilaterally, Cardiovascular - Heart rhythm is regular. There is no murmur, gallop, or rub noted, Abdomen - Soft and non-tender. Liver and spleen are not enlarged. There is no abdominal mass or ascites noted and there is no inguinal adenopathy, Back/Spine - No spine or CVA tenderness noted, Extremities - No edema. I am not able to palpate pedal pulses, Integumentary - No rashes. No suspicious skin lesions noted, Neurologic - She has slow responses and her movements are also slow. She has unsteady gait. There is mild muscle weakness. There are no focal neurologic deficits noted. Her DTRs are intact and symmetric. Lab/Imaging: Her laboratory studies from 12/09/2019 included CBC showing hemoglobin 12.8 g, white blood cell count 6900, and platelet count 285,000. Comprehensive metabolic profile showed normal renal function with BUN 18 and creatinine 0.7 mg/dL. Alkaline phosphatase was slightly elevated at 126/105 IU/L and the SGPT was slightly elevated at 41/33 U/L. The SGOT and total bilirubin were normal. The calcium level was 8.5 mg/dL with albumin slightly low at 3.2 g/dL. TSH was normal at 1.87 ???IU/mL. B12 level was normal at 481 pg/mL. Impression: 1. Patient has a left lower lobe lung mass which is highly suspicious for primary lung neoplasm. 2. She has had recent onset of cognitive dysfunction, significant enough to impair her ability to perform ADLs. 3. Since March 2019 she has had ongoing problems with complex regional pain syndrome involving the right lower leg and foot. Her other medical illnesses include: 4. COPD. 5. She was previously diagnosed with ulcerative colitis, though she has not been on any specific treatment for it. Plan: The CT findings and the CT images were reviewed with the patient and her family. We discussed the fact that the probability is very high that she has primary lung cancer. Thus far there are no CT findings to suggest metastatic disease, and thus far there appears to be no obvious cause for the significant changes in her cognitive function, which do appear to be of recent onset. I had reviewed the CT scan with Dr. Bryant, and it does appear that the lung lesion will be accessible for needle biopsy. As such, I will go ahead and schedule the procedure to be done under CT guidance. In the meantime, I also will schedule a staging PET/CT and an MRI of the brain to be done with and without contrast. In addition, I want to schedule arterial Doppler studies of both legs, as she does have findings which are somewhat suspicious for arterial insufficiency. I will give her prescription for Cymbalta to start at 30 mg daily with escalation to 60 mg daily in 2 weeks. She also will be given a prescription for immediate release oxycodone 5 mg to take as needed. Signed By: Ry Muñoz M.D. <<Signature on File>>
== END 2019-12-13 09:55 | disposition home or self-care (01) ==
LOC: ONCMED 10:01
PROVIDERS: PCP Internal Medicine; Visit Provider Internal Medicine Medical Oncology
DX: R91.1 Solitary pulmonary nodule (principal); J44.9 Chronic obstructive pulmonary disease, unspecified; K51.90 Ulcerative colitis, unspecified, without complications; Z79.02 Long term (current) use of antithrombotics/antiplatelets
CPT/HCPCS: 99205

== ENCOUNTER 2019-12-15 13:03 | Outpatient (CLI) | payer MEDICARE, OTHER, SELFPAY ==
--- NOTE | 2019-12-15 13:09 | USCV_ITS ---
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 Significantly diminished systolic pressure at the level of the posterior tibial artery on the right side, may suggest hemodynamically significant stenosis in the distribution of this artery. Consider CTA or peripheral angiogram, to better evaluate the distal peripheral arteries, if clinically indicated Dr Davon Scott MD [facility] (Electronically Signed) Final Date: 18 December 2019 18:15 S
--- NOTE | 2019-12-15 13:52 | MR_ITS ---
WS: [id number] MRI BRAIN WITH AND WITHOUT CONTRAST HISTORY: LUNG MASS;MENTAL STATUS CHANGE; HEADACHE COMPARISON: 12/10/2019 TECHNIQUE: Multiplanar imaging performed through the brain with Prohance 15 ml's IV. Acute infarct involving cortex of the LEFT frontal lobe towards the vertex extending along the yates hed distribution between the anterior and middle cerebral arteries. There is even a component of infa rct involving the body of the corpus callosum. No hemorrhage. Small amount of serpiginous enhancement along the infarct site. Additional mild chronic microvascular ischemic disease. Ventricles and extra-axial spaces are normal. Clivus and pituitary gland are normal. Visualized posterior fossa and brainstem are also normal. No enhancing masses or evidence for metastatic disease. There is serpiginous enhancement at the infar ct site. Dural venous sinuses are normal. Paranasal sinuses: Well aerated with no significant disease. Mastoid air cells: Normal. Calvarium and scalp: Normal. MR/MR head wo/w con [id number] IMPRESSION: 1. Acute LEFT frontal infarct with involvement of the watershed distribution b etween the anterior and middle cerebral arteries. 2. No evidence for metastatic disease. Notified Kae in Oncology at 12/15/2019 3:24 PM.
== END 2019-12-15 13:04 | disposition home or self-care (01) ==
LOC: RAD 13:06 → ONCMED 13:50
PROVIDERS: PCP Internal Medicine; Visit Provider Internal Medicine Medical Oncology
DX: I63.81 Other cerebral infarction due to occlusion or stenosis of small artery (principal); I73.9 Peripheral vascular disease, unspecified; G56.40 Causalgia of unspecified upper limb; R53.1 Weakness
CPT/HCPCS: 70553; 93923; A9579

== ENCOUNTER 2019-12-21 22:06 | Emergency (ER) | payer MEDICARE, OTHER, SELFPAY ==
[2019-12-21 22:07] VITALS: BP 149/63; PULSE 84; RESP 18; TEMP 36.7; O2SAT 92; BMI 22.1
--- NOTE | 2019-12-21 22:14 | CTR_ITS ---
PROCEDURE INFORMATION: Exam: CT Head Without Contrast Exam date and time: 12/21/2019 10:48 PM Age: 74 years old Clinical indication: Altered mental status/memory loss and weakness, extremity; Bilateral; Confusion or disorientation TECHNIQUE: Imaging protocol: Computed tomography of the head without contrast. Radiation optimization: All CT scans at this facility use at least one of these dose optimization techniques: automated exposure control; mA and/or kV adjustment per patient size (includes targeted exams where dose is matched to clinical indication); or iterative reconstruction. COMPARISON: CT head wo con* [id number] 12/10/2019 4:11 PM RADIATION DOSE METRICS: Total DLP (mGy-cm): 834.65 FINDINGS: Brain: Normal. No hemorrhage. Unremarkable white matter. No mass effect. Ventricles: Normal. No ventriculomegaly. Bones/joints: Unremarkable. No acute fracture. Sinuses: Visualized sinuses are unremarkable. No fluid levels. Mastoid air cells: Visualized mastoid air cells are well aerated. Soft tissues: Unremarkable. CT/CT head wo con* [id number] IMPRESSION: Negative for intracranial hemorrhage or mass effect Radiation Dose CTDIVOL = (mGy): DLP = 834.65 (mGy-cm)
--- NOTE | 2019-12-21 22:14 | XR_ITS ---
WS: [id number] Portable AP upright chest, 12/21/2019 Clinical Data: weakness Comparison: Portable chest, 12/09/2019. Findings: The left lower lobe mass with greatest dimension of 5.7 cm in superior inferior height has not changed. The diaphragms are flattened. The pulmonary vascularity is not increased. No pneumonia o r pneumothorax is seen. The heart is at the upper limits of normal. The aortic arch and descending ao rta are tortuous. There are monitor leads on the chest wall. XR/XR chest 1V portable [id number] Impression: 1. No change in left lower lobe mass overlying the left cardiac border. 2. Atherosclerosis and hyperinflation.
[2019-12-21 22:38] LABS: Basophils % 0.1 %; Eosinophils # 0.4 10^3/uL (0.0-0.8); Hematocrit 40.9 % (37.0-47.0); Hemoglobin 13.1 g/dL (11.5-15.3); Lymphocytes # 0.8 10^3/uL (0.8-4.8); Lymphocytes % 9.7 %; Mean Corpuscular Hemoglobin 28.5 pg (28.0-34.0); Mean Corpuscular Volume 88.9 fL (81-99); Mean Platelet Volume 9.9 fL (7.4-10.4); Monocytes # 0.7 10^3/uL (0.2-0.9); Neutrophils # 6.05 10^3/uL (1.8-7.7); Neutrophils % 75.9 %; Nucleated Red Blood Cells % 0 %; Platelet Count 237 10^3/cmm (130-400); Red Cell Distribution Width 13.8 % (12.1-15.1)
[2019-12-21 22:49] LABS: Add Urine Microscopic? NO
--- NOTE | 2019-12-21 22:50 | ED_ITS ---
HPI - Weakness General: Chief complaint: Weakness Stated complaint: WEAKNESS Time Seen by Provider: 12/21/19 22:07 Source: patient and EMS Mode of arrival: EMS Limitations: no limitations History of Present Illness: HPI Narrative: 74-year-old female who has had progressive weakness of the last couple weeks. She was admitted here 2 weeks ago. Family is concerned she could have had a stroke tonight because she was more weak than normal. She has had a slight period of confusion that started at 7. This did not last long. She is now awake and alert and able answer all my questions. She has no complaints at this time. She is able to tell me her name the year where she lives. Complaint: generalized weakness Associated symptoms: Denies chest pain, chills, dysuria, easy bruising, fever(s), nausea or vomiting Review of Systems Const: Denies: fever(s), chills, body aches or change in appetite Eyes: Denies: blurry vision or eye discomfort ENMT: Denies: throat pain or dental pain Card: Denies: chest pain Resp: Denies: dyspnea GI: Denies: abdominal pain, nausea, vomiting or diarrhea : Denies: dysuria Musc: Denies: neck pain or back pain Skin/Breast: Denies: rash Neuro: Reports: weakness in extremities Psych: Denies: depression Joshua/Lymph: Denies: easy bruising All/Imm: Denies: urticaria PFSH ED PFSH: Medical History COPD (chronic obstructive pulmonary disease) Former smoker Tinnitus Ulcerative colitis Surgical History Hx of hernia repair Hx of tonsillectomy Hx of tonsillectomy Hx of tubal ligation Family History Other Diabetes Hypertension Social History Smoking and tobacco status: former smoker Alcohol intake: never Lives independently: Yes Household members: spouse Housing: House Physical Exam Const: COMMON NORMALS: no acute distress, patient oriented x3 and healthy appearing HENMT: COMMON NORMALS: normocephalic and atraumatic HEAD & SCALP: normocephalic and atraumatic Eye: COMMON NORMALS: Equal, round and reactive pupils present and EOMs intact bilaterally PUPIL: Yes Equal, round and reactive pupils present Neck/C-Spine: COMMON NORMALS: full ROM and supple Chest: COMMONS NORMALS: normal inspection of the chest and normal palpation of entire chest wall Resp: COMMON NORMALS: normal respiratory effort, No retractions, No use of accessory muscles and clear to auscultation bilaterally AUSCULTATION: clear to auscultation bilaterally Cardio: COMMON NORMALS: regular rate, regular rhythm and No murmurs present (Cardio) RATE: regular rate RHYTHM: regular rhythm GI: COMMON NORMALS: Normal to inspection, nondistended, normoactive bowel sounds present, Soft to palpation, non-tender and no masses PALPATION: Yes Soft to palpation Extremity: COMMON NORMALS: normal to inspection and full ROM Neuro: COMMON NORMALS: patient oriented x3, moves all extremities and no focal motor deficits Psych: COMMON NORMALS: mental status grossly normal, Normal thought process present and cooperative THOUGHT PROCESS: Normal thought process present Skin: COMMON NORMALS: no rashes or lesions noted and no wounds GENERAL SKIN EXAM: no rashes or lesions noted Course Vital Signs: Vital signs: Vital Signs Temperature 98.8 F 12/22/19 00:32 Pulse Rate 83 12/22/19 00:32 Respiratory Rate 18 12/22/19 00:32 Blood Pressure 121/61 12/22/19 00:32 Pulse Oximetry 94 12/22/19 00:32 MDM - Weakness MDM Narrative: Medical decision making narrative: Presents with generalized weakness with no signs of acute stroke. Patient symptoms have improved. She does have some chronic weaknesses. She has an appointment tomorrow with Dr. Muñoz. I feel she is stable for discharge and does not require admission at this time. She is to return if worsening. Lab Data: Labs: Lab Results 12/21/19 12/21/19 12/21/19 Range/Units 22:20 22:20 22:20 WBC 8.0 (4.0-10.0) 10^3/ uL RBC 4.60 (4.1-5.3) 10^6/u L Hgb 13.1 (11.5-15.3) g/dL Hct 40.9 (37.0-47.0) % MCV 88.9 (81-99) fL MCH 28.5 (28.0-34.0) pg MCHC 32.0 (30.0-36.0) g/dL RDW 13.8 (12.1-15.1) % Plt Count 237 (130-400) 10^3/c mm MPV 9.9 (7.4-10.4) fL Neut % (Auto) 75.9 % Lymph % (Auto) 9.7 % Love % (Auto) 9.0 % Eos % (Auto) 5.0 % Baso % (Auto) 0.1 % Neut # (Auto) 6.05 (1.8-7.7) 10^3/u L Lymph # (Auto) 0.8 (0.8-4.8) 10^3/u L Love # (Auto) 0.7 (0.2-0.9) 10^3/u L Eos # (Auto) 0.4 (0.0-0.8) 10^3/u L Baso # (Auto) 0.0 (0.0-0.1) 10^3/u L Nucleated RBC % (a uto) 0 % Nucleated RBCs # 0.0 /100WBC PT 13.70 (12.1-14.9) SECO NDS INR 1.02 (0.8-1.2) Sodium 131 L (136-145) mmol/L Potassium 4.2 (3.5-5.1) mmol/L Chloride 98 (98-107) mmol/L Carbon Dioxide 27 (22-29) mmol/L Anion Gap 10.2 (5-19) BUN 18 (8-23) mg/dL Creatinine 0.7 (0.5-0.9) mg/dL GFR Calculation Not Reportable Glucose 130 H (65-115) mg/dL Calculated Osmolal ity 270 L (285-295) mOsm/k g Calcium 8.4 L (8.5-10.5) mg/dL Total Bilirubin 0.4 (0.15-1.2) mg/dL AST 31 (0-32) U/L ALT 34 H (0-33) U/L Alkaline Phosphata se 159 H (35-105) IU/L Total Protein 7.2 (6.6-8.7) g/dL Albumin 3.1 L (3.5-5.2) g/dL Globulin 4.1 (1.3-4.6) g/dL Urine Color (Yellow) Urine Appearance (CLEAR) Urine pH (5-7) Ur Specific Gravit y (1.005-1.030) Urine Protein (Negative) Urine Glucose (UA) (Normal) Urine Ketones (Negative) Urine Blood (Negative) Urine Nitrate (Negative) Urine Bilirubin (Negative) Urine Urobilinogen (Negative) mg/dL Ur Leukocyte Avril ase (Negative) 12/21/19 Range/Units 22:44 WBC (4.0-10.0) 10^3/ uL RBC (4.1-5.3) 10^6/u L Hgb (11.5-15.3) g/dL Hct (37.0-47.0) % MCV (81-99) fL MCH (28.0-34.0) pg MCHC (30.0-36.0) g/dL RDW (12.1-15.1) % Plt Count (130-400) 10^3/c mm MPV (7.4-10.4) fL Neut % (Auto) % Lymph % (Auto) % Love % (Auto) % Eos % (Auto) % Baso % (Auto) % Neut # (Auto) (1.8-7.7) 10^3/u L Lymph # (Auto) (0.8-4.8) 10^3/u L Love # (Auto) (0.2-0.9) 10^3/u L Eos # (Auto) (0.0-0.8) 10^3/u L Baso # (Auto) (0.0-0.1) 10^3/u L Nucleated RBC % (a uto) % Nucleated RBCs # /100WBC PT (12.1-14.9) SECO NDS INR (0.8-1.2) Sodium (136-145) mmol/L Potassium (3.5-5.1) mmol/L Chloride (98-107) mmol/L Carbon Dioxide (22-29) mmol/L Anion Gap (5-19) BUN (8-23) mg/dL Creatinine (0.5-0.9) mg/dL GFR Calculation Glucose (65-115) mg/dL Calculated Osmolal ity (285-295) mOsm/k g Calcium (8.5-10.5) mg/dL Total Bilirubin (0.15-1.2) mg/dL AST (0-32) U/L ALT (0-33) U/L Alkaline Phosphata se (35-105) IU/L Total Protein (6.6-8.7) g/dL Albumin (3.5-5.2) g/dL Globulin (1.3-4.6) g/dL Urine Color Yellow (Yellow) Urine Appearance Clear (CLEAR) Urine pH 6 (5-7) Ur Specific Gravit y 1.020 (1.005-1.030) Urine Protein Neg (Negative) Urine Glucose (UA) Norm (Normal) Urine Ketones Negative (Negative) Urine Blood Neg (Negative) Urine Nitrate Negative (Negative) Urine Bilirubin Neg (Negative) Urine Urobilinogen Norm (Negative) mg/dL Ur Leukocyte Avril ase Negative (Negative) Imaging Data^: CXR: Attestation: I personally reviewed and interpreted this imaging study as follows: My impression: no acute abnormality CT Head: Attestation: I personally reviewed and interpreted this imaging study as follows: Radiologist's impression: Age/Gender: 74Y, F Primary Location: ER Procedure: CT head wo con* [id number] Study Date: 12/21/2019 10:49:55 PM Order #: [id number] Report Status: Finalized Reason: [place] [address] CT Scan Report Signed Patient: Dorys Alcantara Unit #: [id number] : 1945 Age/Sex: 74 / F ADM Date: 12/21/19 Loc: ER Room/Bed: Attending Dr: Ordering Provider/Ordering MD: Natalya Cleveland MD Date of Service: 12/21/19 Procedure(s): CT head wo con* [id number] Accession Number(s): [id number] Report Number: [id number] PROCEDURE INFORMATION: Exam: CT Head Without Contrast Exam date and time: 12/21/2019 10:48 PM Age: 74 years old Clinical indication: Altered mental status/memory loss and weakness, extremity; Bilateral; Confusion or disorientation TECHNIQUE: Imaging protocol: Computed tomography of the head without contrast. Radiation optimization: All CT scans at this facility use at least one of these dose optimization techniques: automated exposure control; mA and/or kV adjustment per patient size (includes targeted exams where dose is matched to clinical indication); or iterative reconstruction. COMPARISON: CT head wo con* [id number] 12/10/2019 4:11 PM RADIATION DOSE METRICS: Total DLP (mGy-cm): 834.65 FINDINGS: Brain: Normal. No hemorrhage. Unremarkable white matter. No mass effect. Ventricles: Normal. No ventriculomegaly. Bones/joints: Unremarkable. No acute fracture. Sinuses: Visualized sinuses are unremarkable. No fluid levels. Mastoid air cells: Visualized mastoid air cells are well aerated. Soft tissues: Unremarkable. CT/CT head wo con* [id number] IMPRESSION: Negative for intracranial hemorrhage or mass effect Discharge Plan Discharge Patient Disposition: Home Clinical Impression: Weakness Condition: Stable Prescriptions: No Action fluticasone propion-salmeterol [Wixela Inhub] 250-50 mcg/dose blister with device 1 inh INHALATION BID RF: 0 Spiriva with HandiHaler 18 mcg capsule, w/inhalation device 1 cap INHALATION DAILY RF: 0 acetaminophen [Tylenol Extra Strength] 500 mg Tablet 500 mg PO TID PRN (Reason: Pain) RF: 0 Centrum Silver Women 8 mg iron-400 mcg-300 mcg Tablet 1 tab PO DAILY RF: 0 aspirin 81 mg tablet,delayed release (DR/EC) 81 mg PO DAILY 30 Days Qty: 30 RF: 0 atorvastatin 40 mg tablet 40 mg PO DAILY 30 Days Qty: 30 RF: 0 Discharge Orders: Discharge Order (Routine); Ordered 12/21/19 Ordered By: Natalya Cleveland Referrals: Becca Morrison MD [Primary Care Provider] - Discharge Diet: Advance as tolerated Discharge Activity: Resume usual activity Patient Instructions: Weakness (ED) Discharge Date/Time: 12/22/19 00:55 Coding Level of Care Code ED Dairy Manufacturing Technologist for Chg Fwd Exam Comprehensive
[2019-12-21 22:52] LABS: INR 1.02 (0.8-1.2)
[2019-12-21 22:59] LABS: Alanine Aminotransferase 34 U/L (0-33); Albumin Level 3.1 g/dL (3.5-5.2); Alkaline Phosphatase 159 IU/L (35-105); Anion Gap 10.2 (5-19); Aspartate Amino Transferase 31 U/L (0-32); Blood Urea Nitrogen 18 mg/dL (8-23); Calcium 8.4 mg/dL (8.5-10.5); Carbon Dioxide 27 mmol/L (22-29); Chloride 98 mmol/L (98-107); Globulin 4.1 g/dL (1.3-4.6); Glucose 130 mg/dL (65-115); Osmolality Calculated 270 mOsm/kg (285-295); Potassium 4.2 mmol/L (3.5-5.1); Sodium 131 mmol/L (136-145); Total Bilirubin 0.4 mg/dL (0.15-1.2); Total Protein 7.2 g/dL (6.6-8.7)
[2019-12-21 23:17] LABS: Bilirubin Urine Neg (Negative); Blood Urine Neg (Negative); Glucose Urine UA Norm (Normal); Ketones Urine Negative (Negative); Leukocyte Esterase Urine Negative (Negative); Nitrate Urine Negative (Negative); Protein Urine Neg (Negative); Urine Appearance Clear (CLEAR); Urine Color Yellow (Yellow); Urobilinogen Urine Norm (Negative); pH Urine 6 (5-7)
[2019-12-22 00:32] VITALS: BP 121/61; PULSE 83; RESP 18; TEMP 37.1; O2SAT 94
== END 2019-12-22 00:55 | disposition home or self-care (01) ==
PROVIDERS: Emergency Provider Emergency Medicine; PCP Internal Medicine
DX: R53.1 Weakness (principal); Z79.82 Long term (current) use of aspirin; J44.9 Chronic obstructive pulmonary disease, unspecified; Z87.891 Personal history of nicotine dependence; I70.90 Unspecified atherosclerosis
CPT/HCPCS: 12345; 70450; 71045; 80053; 81003; 85025; 85610; 99282; 99283

== ENCOUNTER 2019-12-22 08:36 | Day surgery (SDC) | payer MEDICARE, OTHER, SELFPAY ==
[2019-12-21 13:48] VITALS: BMI 22.1
[2019-12-22] VITALS (14 sets, daily range): BP systolic 120–160; BP diastolic 66–103; PULSE 69–94; RESP 16–18; TEMP 36.5; O2SAT 92–100
[2019-12-22] MEDS: sodium chloride 0.9% 1,000 ML 30 ML IV (09:24)
--- NOTE | 2019-12-22 09:31 | CT_ITS ---
WS: [id number] LUNG BIOPSY CLINICAL INFORMATION: LEFT LUNG MASS COMPARISON: None. DLP: 624.47 mGy.cm TECHNIQUE: The procedure including risk, benefits, and complications were discussed with the patient who agreed to proceed. Using sterile technique, the patient was prepped and draped in the usual steri le fashion. Patient was positioned prone and CT images were obtained through the left lung. The perip heral left lung nodule was selected. After 1% lidocaine using fluoroscopic guidance, a 20-gauge coaxi al needle was advanced into the left lung mass. Approximately 5 samples were obtained. Post procedure CT images demonstrate expected hemorrhage about the region. No visualized pneumothorax. No immediate complications. CT/CT biopsy lung [id number] IMPRESSION: 1. Multiple 20-gauge core samples were obtained of the lung mass. No immediate complications. 2. 30 minute chest x-ray demonstrates no pneumothorax. 3. Patient was discharged 2 hours postprocedure in stable condition.
[2019-12-22] MEDS: fentaNYL 50 mcg/mL INJ 2mL IVP ×3 (11:10→11:40)
[2019-12-22] MEDS: midazolam 1 mg/mL INJ 2 mL IVP ×3 (11:14→11:40)
--- NOTE | 2019-12-22 12:30 | XR_ITS ---
WS: [id number] CHEST XRAY TECHNIQUE: Portable chest. CLINICAL INFORMATION: POST LEFT LUNG MASS BIOPSY COMPARISON: December 21, 2019 FINDINGS: Heart: Cardiomegaly. Aortic calcification. Lungs: Lungs are clear. No consolidation or pleural effusion. Moderate chronic emphysematous changes. Stable opacity left lower lobe measuring 5.0 CCM. No visualized pneumothorax. Bones: Normal visualized bony structures. XR/XR chest 1V portable [id number] IMPRESSION: No visualized pneumothorax, post left CT guided lung biopsy.
== END 2019-12-22 13:25 | disposition home or self-care (01) ==
LOC: CCL 08:53 → GILAB 09:17
PROVIDERS: Radiology Neuroradiology; PCP Internal Medicine; Visit Provider Internal Medicine Medical Oncology
DX: R91.8 Other nonspecific abnormal finding of lung field (principal)
CPT/HCPCS: 32405; 71045; 77012; 88307; 96374; 96375; J2250; J3010; J7030

== ENCOUNTER 2019-12-23 06:03 | Outpatient (CLI) | payer MEDICARE, OTHER, SELFPAY ==
--- NOTE | 2019-12-24 11:28 | ONC FU_ITS ---
Dr. Muñoz Patient Follow-Up Note Patient: Dorys Alcantara Unit #: [id number]: 1945 Dicatated By: Ry Muñoz M.D.Date of Visit:Dec 23, 2019 Onc Med Follow-up/Prog Note Chief Complaint: Lung mass. History of Present Illness: This is a 74 year-old woman with left lower lobe lung mass and suspected lung cancer. On 12/09/2019 she was admitted to the hospital after presenting to the emergency room with mental status changes. According to both the patient's and her [id number] who are present during the visit, this was an acute change which had developed over a couple of weeks. Her symptoms had initially worsened gradually to the point that she could not talk to him and could not dress herself or feed herself. She had then become incoherent, prompting him to take her to the emergency room. Her head CT at that time showed a small area of encephalomalacia in the left frontal lobe consistent with an old infarct. There were no acute findings. CT pulmonary angiogram showed severe emphysematous changes with subpleural atelectasis of the dependent portions of the lungs. There is no evidence for pulmonary embolus. The most significant finding was a left lower lobe mass measuring 4.9 x 4.0 x 6.7 cm. A 3 mm nodule is noted in the right upper lobe. There were additional groundglass opacities with tree-in-bud densities compatible with mild pneumonitis or edema. There were no enlarged lymph nodes. The liver showed subcentimeter hypodensities which were too small to characterize. The adrenal glands showed nonspecific diffuse bilateral adrenal thickening. During the hospitalization she was given empiric antibiotic coverage with Levaquin. She did show some improvement, and she was able to be discharged home for further outpatient evaluation. I had seen her initially on 12/13/2019. She had further evaluation with brain MRI on 12/15/2019. 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 A component of infarct involving the body of the corpus callosum also was noted. There was additional mild chronic microvascular ischemic disease. There was no evidence of metastatic disease. She then had staging PET/CT on 12/17/2019. It showed an FDG avid left lower lobe mass measuring 3.9 x 2.5 cm, SUV 5.0, consistent with primary lung neoplasm. There was no evidence for local or distant metastatic disease. She underwent CT directed needle biopsy of the lung mass on 12/22/2019, and those results are pending. Her medical history is otherwise significant for complex regional pain syndrome involving the right lower leg and foot, initially diagnosed in March 2019. It had developed following a fall and what appeared to be a minor injury to the right ankle. According to her she had persistent severe pain which was mainly in the foot. It also mainly bothered her during the daytime, as it did not seem to affect her sleep significantly. She had been getting physical therapy and she was also getting some benefit with acupuncture treatment through a chiropractor. She also has known COPD. She had previously been diagnosed with ulcerative colitis, though she apparently has never been on any specific treatment for it. She has a history of smoking 1 pack of cigarettes daily for approximately 30 years. She quit smoking in 1996. She has seen for a follow-up visit, mainly due to concerns regarding her neurologic status. She had been Air-Evac to the ER 2 days ago with further deterioration in her mental status. Her family indicates that she had been going in and out of consciousness. Her head CT was negative for intracranial hemorrhage or mass-effect. Chest x-ray showed no acute findings. The left lower lobe mass appeared stable measuring 5 cm. There was no pneumothorax. She was discharged home with no specific diagnosis. She has since then remained very weak and with very limited activity. She is totally dependent for her ADLs, though she does eat pretty well with assistance. She sometimes has difficulty swallowing. She has not had fever or night sweats. Her breathing is been pretty good. She has just a little bit of cough. She does not complain of chest pain. Bowel and bladder function have been pretty good, though she did have some bladder incontinence this morning. This morning she had also complained to her family that she was having stomach cramps and lower back pain, though she reports having no pain at the time of this visit. She has had headaches and she has poor balance. Medications: Advair Diskus 1 Puff(s) (of 250-50 mcg/dose) Aerosol Powder, Breath Activated Inhalation b.i.d., Aspirin 1 Tablet (of 81 mg) Tablet, chewable Oral daily, Atorvastatin Calcium 1 Tablet (of 40 mg) Oral daily, Spiriva HandiHaler 1 Puff(s) (of 18 mcg) Capsule Inhalation daily Allergies: Penicillins Review of Systems: Constitutional - She continues to have little to no energy. Her activity is very limited. She requires assistance with all ADLs'. Her gait is very unsteady and she requires assistance with ambulation. Her appetite is very poor and her weight is down another 6 pounds from last visit. No fever, night sweats, or hot flashes. ECOG score is 3, ENMT - No sinus congestion/drainage. No mouth sores. No sore throat. She sometimes has difficulty swallowing, Hematologic/Lymphatic - No abnormal bruising or bleeding, Respiratory - Her breath is pretty good. She has just occasional cough. No pleuritic pain or hemoptysis, Cardiovascular - No angina pain. No palpitations, Gastrointestinal - No nausea or vomiting. She's had some heartburn. She had some loose stools. No constipation. No blood in the stool or black stools. She had complained of abdominal pain to her family this morning, but she doesn't have pain now, Genitourinary (F) - No dysuria or hematuria. No urinary frequency. No urgency. She had incontinence this morning, Musculoskeletal - She continues to have pain in her right leg, Integumentary - No skin complications, Neurologic - She complains of headaches. No reported dizziness. No numbness or tingling. She had an episode of passing out and her reports that she was in and out of consciousness during that episode. She was Air-Evac 'd to ER, but was treated and discharged home, Psychiatric - No anxiety or depression. No insomnia. Vital Signs: Performed on Dec 23, 2019 10:43 Height - 69.00 in Weight - 144.2 lbs (LOW) BSA - 1.80 sq.m BMI - 21.29 Temperature - 97.5 F (LOW) Pulse - 86 /min Respiration - 14 /min BP - 106/57 mm(hg) O2 Sat - 94 % (LOW) Pain - 10 Physical Examination: Constitutional - She appears somewhat weak generally. She has a very flat affect. She continues to demonstrate psychomotor retardation, though she is able to respond appropriately to questions, Eyes - Sclerae nonicteric. Conjunctivae clear, ENMT - No lesions noted in the oral cavity, Hematologic/Lymphatic - No cervical, clavicular, or axillary adenopathy, Respiratory - Lungs are clear with diminished air movement bilaterally, Cardiovascular - Heart rhythm is regular. There is no murmur, gallop, or rub noted, Abdomen - Soft and non-tender. Liver and spleen are not enlarged. There is no abdominal mass or ascites noted and there is no inguinal adenopathy, Extremities - Slight edema with induration, Neurologic - She responds slowly to questions and her movements are also slow. She has mild, generalized weakness with no evidence of focal neurologic deficit. Impression: 1. Patient has a left lower lobe lung mass which is highly suspicious for primary lung neoplasm. 2. She has had recent onset of cognitive dysfunction, significant enough to impair her ability to perform ADLs. 3. Since March 2019 she has had ongoing problems with complex regional pain syndrome involving the right lower leg and foot. Her other medical illnesses include: 4. COPD. 5. She was previously diagnosed with ulcerative colitis, though she has not been on any specific treatment for it. Her brain MRI on 12/15/2019 showed an acute infarct involving the left frontal lobe, reportedly in the watershed distribution, suggesting an embolic origin. Her PET/CT showed findings consistent with primary lung neoplasm in the left lower lobe, but with no evidence for regional or distant metastatic disease. She underwent needle biopsy of the lung mass on 12/22/2019, and those results are pending. In the meantime, she has continued to have significant cognitive dysfunction, which I can best describe as flat affect with psychomotor retardation. This is presumed to be due to recent stroke, suspected to be embolic. Plan: I reviewed the MRI images with the patient and her family, which show show significant area of infarct involving the left frontal lobe cortex. She has an appointment with Dr. Eugene on Thursday. In the meantime, she will be scheduled for echocardiogram and for carotid duplex studies, and I will arrange for physical therapy and speech therapy. I also will have her increase aspirin to 162 mg daily and I will add Plavix 75 mg daily. I will see her for further management for the lung cancer as soon as the pathology results are available. Signed By: Ry Muñoz M.D. <<Signature on File>>
== END 2019-12-23 06:04 | disposition home or self-care (01) ==
PROVIDERS: PCP Internal Medicine; Visit Provider Internal Medicine Medical Oncology
DX: R91.8 Other nonspecific abnormal finding of lung field (principal); I69.313 Psychomotor deficit following cerebral infarction; J44.9 Chronic obstructive pulmonary disease, unspecified; K51.90 Ulcerative colitis, unspecified, without complications; G90.521 Complex regional pain syndrome I of right lower limb; Z79.02 Long term (current) use of antithrombotics/antiplatelets; Z79.82 Long term (current) use of aspirin; Z87.891 Personal history of nicotine dependence
CPT/HCPCS: 99214

== ENCOUNTER 2019-12-23 14:04 | Outpatient (CLI) | payer MEDICARE, OTHER, SELFPAY ==
--- NOTE | 2019-12-23 14:17 | USCV_ITS ---
Dorys Alcantara Age: 74 Gender: F : 1945 Exam Date: 12/23/2019 14:39 Ordering Phys: Ry Muñoz MD Technologist: Mio Maddox Exam Location: [facility] [place] Indication: TIA Risk Factors: None Previous Vascular Surgery: None Right Brachial BP: / Left Brachial BP: / Right Left Velocity (cm/s) Spectral Plaque Velocity (cm/s) Spectral Plaque Syst/Diast Broadening Syst/Diast Broadening 50.50/ 12.05 Prox CCA 48.50 / 10.10 39.60/ 9.30 Mid CCA 53.10 / 11.90 38.80/ 10.10 Distal CCA 53.10 / 11.00 59.50/ 14.70 Hetro Prox ICA 67.80 / 12.80 Hetro 70.35/ 16.45 Mid ICA 85.20 / 22.00 80.60/ 22.00 Distal ICA 82.40 / 25.60 77.70 ECA 66.00 1.60 ICA/CCA 1.60 Antegrade Vertebral Antegrade 64.10/ 14.70 cm/s 48.50/ 11.90 cm/s Tri Subclavian Tri 122.7 0 CONCLUSIONS Right ICA stenosis <50%. Mild atheromatous plaque right carotid bulb/ICA. Left ICA stenosis <50%. Mild atheromatous plaque left carotid bulb/ICA. Normal antegrade Doppler flow noted in the right vertebral artery. Normal antegrade Doppler flow noted in the left vertebral artery. Mayito Frias MD (Electronically Signed) Final Date: 23 December 2019 16:56 S
== END 2019-12-23 14:05 | disposition home or self-care (01) ==
LOC: RAD 14:08
PROVIDERS: PCP Internal Medicine; Visit Provider Internal Medicine Medical Oncology
DX: G45.9 Transient cerebral ischemic attack, unspecified (principal)
CPT/HCPCS: 93880

== ENCOUNTER → 2019-12-30 14:01 | Outpatient (BNVA) | payer MEDICARE, OTHER, SELFPAY | PROVIDERS: PCP Internal Medicine; Visit Provider Specialist | DX: R91.8 Other nonspecific abnormal finding of lung field (principal); Z86.73 Personal history of transient ischemic attack (TIA), and cerebral infarction without residual deficits; Z87.891 Personal history of nicotine dependence | CPT/HCPCS: 99205 ==

== ENCOUNTER 2020-01-09 05:49 | Outpatient (RCR) | payer MEDICARE, OTHER, SELFPAY ==
--- NOTE | 2020-01-03 18:08 | N.ONRAD NP_ITS ---
Radiation Oncology New Patient Visit Patient: Dorys Alcantara MR#: [id number] : 1945 Age: 74 Sex: Female Dictated by: Dr. Will Castro Date of Service: 01/02/2020 Referring Physician(s) : Byron Nunez Primary Site: Left lower lobe of lung. 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 Purpose of Visit: Discuss the role of radiotherapy with curative intent. History of Present Illness: The patient is a 74-year-old female with a 15-qbvg-acnt history of smoking who was incidentally found to have a 6.7 cm left lower lobe mass after presenting to the emergency room with altered mental status changes consistent with a stroke. On 12/09/2019 a chest x-ray revealed an airspace opacity in the lingula compatible with probable pneumonic infiltrate obscuring the left heart border. A subsequent CT angio of the chest (12/10/2019) revealed the presence of a 4.9 x 4.0 x 6.7 cm mass in the left lower lobe which was suspicious for pulmonary neoplasm, a 3 mm nodule in the right upper lobe (image 105), mild groundglass opacity within a tree-in-bud densities in the lungs compatible with mild pneumonitis/edema, and subcentimeter hepatic hypodensities which are too small to characterize. On 12/22/2019, a CT-guided needle biopsy of the left lung mass revealed scattered fragments of large atypical cells, concerning for malignancy, ???most likely a sarcomatoid differentiation???. 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 Dr. Muñoz subsequently increased the patient's aspirin form 81 mg/day to 162 mg/day coupled with the addition of Plavix 75 mg daily. Physical therapy and speech therapy have been ordered, and the patient is scheduled to see a neurologist in [place] in the near future for further management. On 12/17/2019, a PET/CT revealed a 3.9 x 2.5 cm left lower lobe lung mass with high FDG avidity and central necrosis. A CT of the abdomen pelvis (12/23/2019 versus 11/18/2019) revealed no evidence of malignancy. There was an unchanged left infrarenal abdominal aortic aneurysm measuring 3.1 x 2.7 cm, a left renal cyst measuring 4.6 x 4.0 cm, a small esophageal hiatal hernia, a new common bile duct stent with pneumobilia, On 12/23/2019 carotid artery ultrasound revealed less than 50% stenosis of the right and left internal carotid artery and mild atheromatous plaque within the right and left carotid artery bulb/ICA. The patient is seen in consultation today with her and daughter. Although the family says that her mental status is improving, the patient exhibited concerns for persistent issues with comprehension. I suspect that the patient does not have the current mental acuity that is needed to fully understand her disease status and prognosis. Imaging Review: I reviewed the radiographic images discussed above. Current Medications: Advair Diskus, aspirin, atorvastatin Calcium, clopidogrel Bisulfate, dULoxetine HCl, lORazepam, oxyCODONE HCl, spiriva HandiHaler. Allergies: Penicillins. Medical History: - Chronic obstructive pulmonary disease, - complex regional pain syndrome, - ulcerative colitis. No history of collagen vascular disease. No previous radiation therapy. Surgical History: Hernia repair, tonsillectomy and tubal ligation. Family History: Father is at age 78 having experienced complication of bowel surgery. Mother is at age 92 having experienced accident. Father age 78 with complications following bowel surgery. Mother at age 92 from an accidental injury. A sister had manic depression and at age 48, apparently with complications of alcohol and medication use. Social History: Last screened on 12/23/2019 - Yes - but has quit for 23 years. Smoked 1.0 pack/day for 31 years (31 pack years). Last screened on 12/23/2019 - Past drinker. Current Complaints / Review of Systems: Constitutional - Complains of mild fatigue. Complains of change in weight has lost about 50 lbs. in the last few months but her weight is stable now. Denies lack of appetite, fever and night sweats. Eyes - Complains of photophobia associated with sunlight in which has been going on for a little while. Denies blurred vision and double vision. ENMT - Denies dysphagia, ear pain, mouth dryness, stomatitis and altered taste. Neck - Denies neck pain. Integumentary - Denies rash. Breasts - Denies pain. Cardiovascular - Denies arrhythmias, chest pain and edema. Respiratory - Denies cough, dyspnea, hemoptysis and wheezing. Gastrointestinal - Denies abdominal pain, constipation, diarrhea, heartburn / dyspepsia, melena / GI bleeding, nausea and vomiting. Genitourinary (F) - Complains of nocturia gets up about 2 times per night. Denies dysuria, frequency, urgency, vaginal discharge / bleeding and vaginal spotting. Musculoskeletal - Complains of joint pain in the right foot. Denies bone pain and muscle weakness. Neurologic - Complains of frequent dizziness. Complains of abnormal gait. Complains of stroke. Denies disorientation, headaches and seizure. Has aphasia after having the stroke. Endocrine - Denies diabetes and thyroid disease. Hematologic/Lymphatic - Denies tender or enlarged lymph nodes. Physical Exam: GENERAL:??? The patient is alert, and in no acute distress. HEENT:??? Head is normocephalic. Face is symmetric. External ocular movements are intact. Sclera and conjunctivae are non erythematous. NECK:??? Trachea is midline.??? Thyroid is not enlarged by palpation.??? LYMPH NODES:??? There is no cervical or supraclavicular adenopathy bilaterally. LUNGS:??? Clear to auscultation bilaterally. Respiratory movement is unlabored. HEART:??? Regular rate and rhythm. EXTREMITIES:??? No deformities. NEUROLOGIC:??? Gait and station are normal.??? The patient is well coordinated and strength is equal bilaterally. Cognition is impaired. ELEPHANT KEEPER:??? Cranial nerves II-XII are intact and without focal deficits.??? Psych: Affect is normal. Skin: Cursory review of the skin reveals no obvious lesions concerning for malignancy. Performance Status: 2 - Ambulatory/capable of all self-care, unable to perform any work activities. Up and about more than 50% of waking hours. (ECOG) Pathology: Primary, r91.8 - other nonspecific abnormal finding of lung field, Diagnosed 12/13/2019 (active), Primary, r09.89 - other specified symptoms and signs involving the circulatory and respiratory systems, Diagnosed 12/13/2019 (active) and Primary, r91.1 - solitary pulmonary nodule, Diagnosed 12/13/2019 (active). Lab: Imaging: See HPI Impression: The patient is a 74 year old female with COPD, a recent stroke which affects her cognition, and an incidentally diagnosed neoplasm most consistent with a Stage IIb (T3 N0 M0) non-small cell lung carcinoma arising in the left lower lobe of lung. 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 After personal review of the PET/CT, it may be possible to treat this with SBRT. If normal tissue tolerance is exceeded during radiation planning, then I would recommend a fractionated approach +/- chemotherapy as pathology warrants. A final decision on recommended treatment will occur after review of final pathology and upon review of a 4D CT, which is scheduled to be completed next week. We discussed treatment logistics, risks & benefits, and alternative treatment options. The family and patient, agreed to proceeding with treatment. Formal consent will need to be signed by the patient and a family member. Signed by Will Castro MD: 01/05/2020 8:01:27 AM <<Signature on File>> Time spent with patient: CPT Code: CPT Code:
--- NOTE | 2020-01-09 | CT_ITS ---
Radiation Therapy Planning CT images; total exam DLP: 1325.27 mGy-cm MTDD
== END 2020-01-11 23:59 | disposition home or self-care (01) ==
LOC: ONCMED 05:49
PROVIDERS: PCP Internal Medicine; Visit Provider Radiology Radiation Oncology
DX: C34.32 Malignant neoplasm of lower lobe, left bronchus or lung (principal)
CPT/HCPCS: 77334; 77470; Q9967

== ENCOUNTER 2020-01-10 09:09 | Outpatient (CLI) | payer MEDICARE, OTHER, SELFPAY ==
--- NOTE | 2020-01-10 09:30 | MR_ITS ---
WS: [id number] MRI BRAIN WITH AND WITHOUT CONTRAST HISTORY: LEFT MCA stroke. COMPARISON: 12/15/2019, 12/21/2019 TECHNIQUE: Multiplanar imaging performed through the brain with Prohance 17 ml's IV. LEFT frontal lobe infarct diffusion weighted changes are still apparent. There is increased T1 signal in the cortex of the LEFT frontal lobe. The ADC map is of increased signal. No hemorrhage. There is a new mosquera radiata infarct on the RIGHT. Normalization of the ADC map on the RIGHT. Otherwise the culp-white matter differentiation is unchanged. Ventricles and extra-axial spaces are normal. Clivus and pituitary gland are normal. Visualized posterior fossa and brainstem are also normal. There is a small amount of gyral enhancement in the cortex of the LEFT frontal lobe infarct. Early en hancement in the RIGHT mosquera radiata infarct. There are no enhancing masses to suggest metastatic di sease. The areas of enhancement are most likely Dural venous sinuses are normal. No occlusions of the carotid arteries. Middle cerebral arteries and smaller caliber beyond the M1 segments but this may be due to the imaging parameters. Paranasal sinuses: Well aerated with no significant disease. Mastoid air cells: Normal. Calvarium and scalp: Normal. MR/MR head wo/w con [id number] IMPRESSION: 1. New, small subacute infarct in the RIGHT mosquera radiata since 12/15/2019. Janet ging parameters suggest greater than 1 week old and less than 3 weeks old. 2. Evolving LEFT frontal lobe infarct as expected. No hemorrhage. 3. No enhancing lesions otherwise to suggest metastatic disease.
== END 2020-01-10 09:10 | disposition home or self-care (01) ==
LOC: RADSHAW 09:11
PROVIDERS: PCP Internal Medicine; Visit Provider Specialist
DX: I63.512 Cerebral infarction due to unspecified occlusion or stenosis of left middle cerebral artery (principal)
CPT/HCPCS: 70553; A9579

== ENCOUNTER 2020-01-12 10:04 | Outpatient (CLI) | payer MEDICARE, OTHER, SELFPAY ==
--- NOTE | 2020-01-12 10:15 | MR_ITS ---
WS: [id number] MRA ANGIOGRAPHY [place] [facility] [place] HISTORY: I63.512 Cerebral infarction due to unspecified occlusion ... COMPARISON: None available. TECHNIQUE: 3-D MR angiography is performed of the [place]. All images are reviewed including source images. Distal vertebral and basilar arteries are intact with no significant stenosis or plaque. Posterior ce rebral arteries are normal course and caliber. Posterior communicating arteries are both patent. Distal intracranial carotid arteries are normal caliber. No thrombus or significant plaque. Bilateral middle cerebral arteries are both patent. No stenosis. Nonvisualization of the RIGHT A1 segment. No thrombosis noted on the recent MRI. Suspect this is probably a small hypoplastic A1 segment. The LEFT A1 segment is normal. A2 segments are normal caliber. MR/MR angio head wo con [id number] IMPRESSION: 1. Nonvisualization of the RIGHT A1 segment. May be due to hypoplasia/congenit al. No thrombus is identified. No thrombus was noted on the prior MRIs in this location either. 2. No aneurysms.
== END 2020-01-12 10:05 | disposition home or self-care (01) ==
PROVIDERS: PCP Internal Medicine; Visit Provider Specialist
DX: I63.512 Cerebral infarction due to unspecified occlusion or stenosis of left middle cerebral artery (principal)
CPT/HCPCS: 70544

== ENCOUNTER 2020-01-26 05:44 | Outpatient (RCR) | payer MEDICARE, OTHER, SELFPAY ==
--- NOTE | 2020-01-24 17:46 | ONCRAD TMN_ITS ---
Radiation Oncology Weekly Treatment Management Patient: Dorys Alcantara MR#: [id number] : 1945 Age: 74 Sex: Female Dictated by: Dr. Will Castro Date of Service: 01/23/2020 Referring Physician(s) : Byron Nunez Primary Site: Left lower lobe of lung. 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 Radiotherapy to date: Course: LT Lung [id number], Treatment Site: SBRT 5FX, Ref. ID: [id number], Energy: 6X, Dose/Fx (cGy): 1,000, #Fx: 3 / 5, Dose Correction (cGy): 0, Total Dose (cGy): 3,000, Start Date: 01/16/2020, Elapsed Days: 7 Reason for visit: The patient is being seen today as part of their regularly scheduled weekly on treatment visits to assess for acute toxicities from radiotherapy. Interim History: The patient reports no progressive shortness of breath, and she continues to have a nonproductive cough. She reports no acute side effects associated with radiation therapy. Current Medications: Advair Diskus, aspirin, clopidogrel Bisulfate, dexamethasone, dULoxetine HCl, lORazepam, oxyCODONE HCl, spiriva HandiHaler. Allergies: Penicillins. Current Complaints/Review of Systems: Constitutional - Complains of moderate fatigue. Denies lack of appetite, fever, night sweats and change in weight. ENMT - Denies dysphagia. Cardiovascular - Denies arrhythmias, chest pain and edema. Respiratory - Complains of cough which is dry in nature. Complains of dyspnea associated with normal activity. Denies hemoptysis and wheezing. Gastrointestinal - Complains of vomiting which happened this morning. Denies nausea. Vital Signs: Performed on 01/23/2020 2:53 PM BMI - 21.531 kg/m2, Height - 69.00 in, Weight - 145.8 lbs, Temperature - 97.2 f, Pulse - 76, Respiration - 20, O2 Sat - 99 %, Pain - 0 and BP - 136/ 85 mm(hg). Physical Exam: Lungs are clear to auscultation bilaterally. Performance Status: 3 - Capable of only limited self-care, confined to bed or chair more than 50% of waking hours. (ECOG) Lab: None pending in Radiation Oncology. Imaging: Radiation therapy imaging related to accurate target localization (i.e. KV, MV and CBCT) was reviewed. Appropriate changes, if any, were made to ensure treatment accuracy. Plan: The patient is tolerating therapy reasonably well. Radiotherapy will continue as planned. We will order a posttreatment CT of the chest to be completed 3 months from now. CPT: 76865 Signed by: Dr. Will Castro 01/24/2020 5:44:53 PM
== END 2020-02-11 23:59 | disposition home or self-care (01) ==
LOC: ONCMED 05:44
PROVIDERS: PCP Internal Medicine; Visit Provider Radiology Radiation Oncology
DX: Z51.0 Encounter for antineoplastic radiation therapy (principal); C34.32 Malignant neoplasm of lower lobe, left bronchus or lung
CPT/HCPCS: 77293; 77300; 77301; 77336; 77338; 77373

== ENCOUNTER → 2020-02-22 11:07 | Outpatient (BNVA) | payer MEDICARE, OTHER, SELFPAY | PROVIDERS: PCP Internal Medicine; Visit Provider Specialist | DX: G57.71 Causalgia of right lower limb (principal); I63.9 Cerebral infarction, unspecified; Z87.891 Personal history of nicotine dependence | CPT/HCPCS: 99215 ==

== ENCOUNTER 2020-02-28 06:00 | Outpatient (RCR) | payer MEDICARE, OTHER, SELFPAY | END 2020-03-12 23:59 | disposition home or self-care (01) | LOC: GST 06:00 | PROVIDERS: PCP Internal Medicine; Referring Provider Internal Medicine Medical Oncology; Visit Provider Internal Medicine Medical Oncology | DX: I63.9 Cerebral infarction, unspecified (principal); R41.841 Cognitive communication deficit | CPT/HCPCS: 92523 ==

== ENCOUNTER 2020-05-03 09:30 | Outpatient (CLI) | payer MEDICARE, OTHER, SELFPAY ==
--- NOTE | 2020-05-03 09:41 | CT_ITS ---
WS: [id number] CT CHEST, ABDOMEN, AND PELVIS TECHNIQUE: Contrast-enhanced CT of the chest, abdomen, and pelvis with coronal and sagittal reformatt ed images. CLINICAL INFORMATION: SOLITARY PULMONARY NODULE, LUNG CANCER, RESTAGING COMPARISON: Prior CT December 22, 2019, December 17, 2019, and 2019. DLP: 1801.[address] scans at [facility] use at least one of these dose optimization techniques: automat ed exposure control; mA and/or kV adjustment per patient size (includes targeted exams where dose is matched to clinical indication); or iterative reconstruction. CT CHEST: Left lower lobe neoplasm has decreased in size compared to the prior CT December 10, 2019. Residual sof t tissue lesion is irregular with surrounding atelectasis and infiltrate. This measures approximately 3.1 x 2.3 x 3.3 CM. Surrounding opacity extending to the pleura likely represents infiltrate/atelect asis measuring 3.4 x 3.2 CM. This can be further evaluated PET/CT. Small left pleural effusion. Moderate chronic emphysematous changes. Aortic calcification. Enlarged c entral main pulmonary arteries can be seen with pulmonary arterial hypertension. Mild aortic calcific ation. No mediastinal or hilar lymphadenopathy. CT ABDOMEN AND PELVIS: Diffuse fatty infiltration of the liver. A few small hepatic cysts. Portal vein and splenic vein are patent. Normal gallbladder. Normal spleen. Normal GE junction. Adrenal glands are normal. No hydronephrosis in either kidney. Prominent extrarenal pelvis bilaterall y. Small bilateral renal cysts. Wedge-shaped heterogeneous low-attenuation in the right upper pole ki dney and left upper pole and lower pole likely due to prior infarcts. Normal caliber abdominal aorta. Aortic calcification. Urine distended bladder. Sigmoid constipation. Sigmoid diverticulosis. No periaortic or retroperitoneal lymphadenopathy. No pelvic or inguinal lymph adenopathy. Moderate spondylitic changes lumbar spine. Moderate central canal stenosis L3-4. Heteroge neous lobulated uterine fundus consistent with fibroid measuring 4.[address]/CT chest abd pel w con* IMPRESSION: 1. Spiculated left lower lobe neoplasm appears improved compared to previous. Spiculated lesion today measures 3.1 x 2.3 x 3.3 CM compared to previous measur ing 4.0 x 2.9 x 4.9 cm 2. Surrounding infiltrate or atelectasis extending to the pleura laterally. Th is could be further evaluated PET/CT to assess for active disease 3. No evidence of metastatic disease in the abdomen or pelvis. 4. Uterine fibroid. 5. Small left pleural effusion. 6. No mediastinal or hilar lymphadenopathy. No axillary lymphadenopathy. 7. No abdominal or pelvic lymphadenopathy.
[2020-05-03] MEDS: iohexol 300 mg/mL 50 mL Btl PO (09:47)
[2020-05-03 10:55] LABS: Blood Urea Nitrogen 15 mg/dL (8-23)
[2020-05-03] MEDS: iohexol 300 mg/mL 100 mL Btl IV (11:03)
== END 2020-05-03 09:31 | disposition home or self-care (01) ==
LOC: RADWPI 09:33
PROVIDERS: PCP Internal Medicine; Visit Provider Radiology Radiation Oncology
DX: R91.1 Solitary pulmonary nodule (principal); C34.90 Malignant neoplasm of unspecified part of unspecified bronchus or lung; J90 Pleural effusion, not elsewhere classified; D25.9 Leiomyoma of uterus, unspecified
CPT/HCPCS: 71260; 74177; 82565; 84520; Q9967

== ENCOUNTER 2020-05-18 11:04 | Outpatient (CLI) | payer MEDICARE, OTHER, SELFPAY ==
--- NOTE | 2020-05-18 11:48 | ONCRAD EPV_ITS ---
Radiation Oncology Follow-Up Note Patient Name: Dorys Alcantara Date of : 1945 Date of Service: 05/18/2020 Attending Physician: Binu Orozco M.D. Dorys Alcantara returned to my office this morning for a routinely scheduled follow-up appointment. She completed stereotactic ablative body radiotherapy in January 2020 for the management of her clinical stage IIB (T3N0) poorly differentiated adenosquamous carcinoma of the left lower lobe of the lung. SABR was administered between the dates of January 16, 2020 through January 26, 2020. ???A prescribed dose of 50 Gy was delivered in 5 fractions encompassing 11 elapsed days. On review of systems, the patient denied any pulmonary complaints. On physical examination, she weighed 150. The blood pressure hyv194/71 mm/Hg. Her pulse was 86 bpms and the respiratory rate was 20. Oxygen saturation while breathing ambient air was 99%. In summary, the patient returned for a routine post radiotherapy follow-up. A CT scan of the chest completed on May 03, 2020 and compared to prior imaging identified a partial response to the left lower lobe lesion as defined by the RECIST criteria. She will continue follow-up with her medical oncologist, Ry Muñoz M.D. Signed by: Dr. Binu Orozco 05/18/2020 11:47:06 AM
== END 2020-05-18 11:05 | disposition home or self-care (01) ==
LOC: ONCMED 11:06
PROVIDERS: PCP Internal Medicine; Visit Provider Radiology Radiation Oncology
DX: C34.32 Malignant neoplasm of lower lobe, left bronchus or lung (principal); Z92.3 Personal history of irradiation
CPT/HCPCS: 99213

== ENCOUNTER 2020-06-06 06:06 | Outpatient (CLI) | payer MEDICARE, OTHER, SELFPAY ==
--- NOTE | 2020-06-09 16:33 | ONC FU_ITS ---
Dr. Muñoz Patient Follow-Up Note Patient: Dorys Alcantara Unit #: [id number]: 1945 Dicatated By: Ry Muñoz M.D.Date of Visit:Jun 06, 2020 Onc Med Follow-up/Prog Note Chief Complaint: Lung cancer. History of Present Illness: This is a 74 year-old woman with poorly differentiated nonsmall cell carcinoma involving the lower lobe of the left lung mass, by clinical evaluation stage IIB (T3, N0, M0). On 12/09/2019 she was admitted to the hospital after presenting to the emergency room with mental status changes. According to both the patient's and her [id number] who are present during the visit, this was an acute change which had developed over a couple of weeks. Her symptoms had initially worsened gradually to the point that she could not talk to him and could not dress herself or feed herself. She had then become incoherent, prompting him to take her to the emergency room. Her head CT at that time showed a small area of encephalomalacia in the left frontal lobe consistent with an old infarct. There were no acute findings. CT pulmonary angiogram showed severe emphysematous changes with subpleural atelectasis of the dependent portions of the lungs. There is no evidence for pulmonary embolus. The most significant finding was a left lower lobe mass measuring 4.9 x 4.0 x 6.7 cm. A 3 mm nodule is noted in the right upper lobe. There were additional groundglass opacities with tree-in-bud densities compatible with mild pneumonitis or edema. There were no enlarged lymph nodes. The liver showed subcentimeter hypodensities which were too small to characterize. The adrenal glands showed nonspecific diffuse bilateral adrenal thickening. During the hospitalization she was given empiric antibiotic coverage with Levaquin. She did show some improvement, and she was able to be discharged home for further outpatient evaluation. I had seen her initially on 12/13/2019. She had further evaluation with brain MRI on 12/15/2019. 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 A component of infarct involving the body of the corpus callosum also was noted. There was additional mild chronic microvascular ischemic disease. There was no evidence of metastatic disease. She then had staging PET/CT on 12/17/2019. It showed an FDG avid left lower lobe mass measuring 3.9 x 2.5 cm, SUV 5.0, consistent with primary lung neoplasm. There was no evidence for local or distant metastatic disease. She underwent CT directed needle biopsy of the lung mass on 12/22/2019. 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 It was felt to be likely lung primary. Due to her underlying medical issues, she was felt to be unsuitable for surgery. She had radiation oncology consultation with Dr. Will Castro, and she then underwent SBRT to the left lung tumor. Treatment was completed to a total dose of 5000 cGy, administered in 5 fractions. Her medical history is otherwise significant for complex regional pain syndrome involving the right lower leg and foot, initially diagnosed in March 2019. It had developed following a fall and what appeared to be a minor injury to the right ankle. According to her she had persistent severe pain which was mainly in the foot. It also mainly bothered her during the daytime, as it did not seem to affect her sleep significantly. She had been getting physical therapy and she was also getting some benefit with acupuncture treatment through a chiropractor. She also has known COPD. She had previously been diagnosed with ulcerative colitis, though she apparently has never been on any specific treatment for it. She has a history of smoking 1 pack of cigarettes daily for approximately 30 years. She quit smoking in 1996. Restaging CT scans of the chest, abdomen, and pelvis on 05/03/2020 showed residual soft tissue in the lower lobe of the left lung measuring 3.1 x 2.3 x 3.3 cm. There was surrounding opacity extending into the pleura felt to most likely represent infiltrate/atelectasis measuring 3.4 x 3.2 cm. There was no mediastinal or hilar lymphadenopathy and no other evidence for metastatic disease. She is seen for a follow-up visit. She continues to have limited activity. Her ECOG score is 2. Her appetite is not very good. She tends to eat half portions. Her weight, though, is stable. She does not have fever or night sweats. She has a little short of breath at times. She has just a little bit of cough. She does not complain of chest pain. She has been having a lot of acid reflux. She has ongoing problems with constipation. Bladder function has been okay. She has pain from her feet to her knees associated with the CRPS. She does not complain of headache or dizziness and she has no other joint or bone pain. Medications: Advair Diskus 1 Puff(s) (of 250-50 mcg/dose) Aerosol Powder, Breath Activated Inhalation b.i.d., DULoxetine HCl 1 Capsule (of 60 mg) Capsule Delayed Release Particles Oral daily, Eliquis 1 Tablet (of 5 mg) Oral b.i.d., Spiriva HandiHaler 1 Puff(s) (of 18 mcg) Capsule Inhalation daily Allergies: Penicillins Vital Signs: Performed on Jun 06, 2020 14:16 Height - 69.00 in Weight - 150.4 lbs (HIGH) BSA - 1.83 sq.m BMI - 22.21 Temperature - 98.0 F (LOW) Pulse - 86 /min Respiration - 16 /min BP - 144/60 mm(hg) (HIGH) O2 Sat - 94 % (LOW) Pain - 8 Physical Examination: Constitutional - She appears somewhat weak generally, Eyes - Sclerae nonicteric. Conjunctivae clear, ENMT - No lesions noted in the oral cavity, Hematologic/Lymphatic - No cervical, clavicular, or axillary adenopathy, Respiratory - Lungs are clear with diminished air movement bilaterally, Cardiovascular - Heart rhythm is regular. There is no murmur, gallop, or rub noted, Abdomen - Soft and non-tender. Liver and spleen are not enlarged. There is no abdominal mass or ascites noted and there is no inguinal adenopathy, Extremities - Mild swelling of both legs, which appears chronic, Neurologic - No focal neurologic deficits noted. Problem List: 1. Patient has a left lower lobe lung mass which is highly suspicious for primary lung neoplasm. Non-small cell carcinoma involving the lower lobe of the left lung. 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 By clinical evaluation, her disease was stage IIB (T3, N0, M0). She was felt to be medically unsuitable for surgery. She was treated with SBRT, completed to a total dose of 5000 cGy, administered in 5 fractions. 2. 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 3. Since March 2019 she has had ongoing problems with complex regional pain syndrome involving the right lower leg and foot. 4. COPD. 5. GERD. 6. She was previously diagnosed with ulcerative colitis, though she has not been on any specific treatment for it. Problems Addressed with this Encounter and Plan: 1. Patient with non-small cell carcinoma involving the lower lobe of the left lung. 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 By clinical evaluation, her disease was stage IIB (T3, N0, M0). She was felt to be medically unsuitable for surgery. She was treated with SBRT, completed to a total dose of 5000 cGy, administered in [address] scans on 05/03/2020 did show some evidence of response with some decrease in the size of the left lower lobe neoplasm compared to the prior CT from December 2019. There was no evidence of metastatic disease. She continues to have limited activity, mainly due to the underlying chronic regional pain syndrome. She remains on observation/expectant management. I will see her again in 3 months. 2. 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 She will continue anticoagulation with apixaban 5 mg twice daily. 3. She has complex regional pain syndrome, initially diagnosed in March 2019 and involving the right lower leg and foot. Her symptoms have worsened somewhat, so that it now appears to also involve the left leg. She has been on treatment with duloxetine 60 mg daily. The dosage now will be increased to 90 mg. 4. She has significant GERD symptoms. She will start pantoprazole 40 mg daily. Signed By: Ry Muñoz M.D. <<Signature on File>>
== END 2020-06-06 06:07 | disposition home or self-care (01) ==
LOC: ONCMED 06:07
PROVIDERS: PCP Internal Medicine; Visit Provider Internal Medicine Medical Oncology
DX: C34.32 Malignant neoplasm of lower lobe, left bronchus or lung (principal); K21.9 Gastro-esophageal reflux disease without esophagitis; J44.9 Chronic obstructive pulmonary disease, unspecified; G90.521 Complex regional pain syndrome I of right lower limb; Z92.3 Personal history of irradiation; Z86.73 Personal history of transient ischemic attack (TIA), and cerebral infarction without residual deficits; Z79.01 Long term (current) use of anticoagulants; Z79.899 Other long term (current) drug therapy; Z87.891 Personal history of nicotine dependence
CPT/HCPCS: 99214